=== PATIENT | male | born 1965 | race Caucasian/White ===

== ENCOUNTER 2020-10-25 07:11 | Outpatient (REF) | payer OTHER, SELFPAY ==
[2020-10-25 11:24] LABS: Hematocrit 38.6 % (42-52); Hemoglobin 12.9 g/dl (14.0-18.0)
[2020-10-25 11:45] LABS: Alanine Aminotransferase 36 U/L (0-40); Albumin Level 4.6 g/dL (3.5-5.0); Alkaline Phosphatase 42 U/L (39-117); Anion Gap 16 (12-20); Aspartate Amino Transferase 36 U/L (5-37); Bilirubin Total 0.3 mg/dL (0.0-1.0); Blood Urea Nitrogen 16 mg/dL (9-16); Calcium 9.7 mg/dL (8.4-10.2); Carbon Dioxide 26 mmol/L (22-29); Chloride 103 mmol/L (96-108); Cholesterol 181 mg/dL; Estimated Glomerular Filt Rate > 60; Glucose Fasting 79 mg/dL (60-99); HDL Cholesterol 38 mg/dL; LDL Cholesterol Calculated 101 mg/dl; Potassium 3.8 mmol/L (3.3-5.1); Sodium 141 mmol/L (135-145); Total Protein 7.5 g/dL (6.5-8.0); Triglycerides 214 mg/dL
== END 2020-10-25 07:12 | disposition home or self-care (01) ==
LOC: HO.HMGCLDS 07:11
PROVIDERS: PCP Internal Medicine; Visit Provider Internal Medicine
DX: D64.9 Anemia, unspecified (principal); E78.9 Disorder of lipoprotein metabolism, unspecified; I10 Essential (primary) hypertension; F41.1 Generalized anxiety disorder; F10.20 Alcohol dependence, uncomplicated
CPT/HCPCS: 36415; 80053; 80061; 85014; 85018

== ENCOUNTER 2021-06-18 06:03 | Outpatient (REF) | payer OTHER, SELFPAY ==
[2021-06-18 11:34] LABS: MANUAL DIFF FLAG NO
[2021-06-18 11:45] LABS: Basophils Absolute Auto 0.1 X10*3/uL (0.0-0.2); Basophils Percent Auto 0.7 % (0-2); Eosinophils Absolute Auto 0.3 X10*3/uL (0.0-0.4); Eosinophils Percent Auto 3.1 % (0-4); Hematocrit 38.4 % (42.0-52.0); Hemoglobin 12.8 g/dl (14.0-18.0); Imm Gran Abs Auto 0.05 X10*3/uL (0.00-0.03); Imm Gran Pct Auto 0.5 % (0.0-0.4); Lymphocytes Absolute Auto 2.9 X10*3/uL (1.2-4.9); Lymphocytes Percent Auto 30.6 % (20-40); Mean Corpuscular HGB Conc 33.3 g/dl (31.0-36.0); Mean Corpuscular Hemoglobin 31.8 pg (27.0-33.0); Mean Corpuscular Volume 95.3 fL (80.0-98.0); Mean Platelet Volume 10.4 fL (9.4-12.4); Monocytes Absolute Auto 0.9 X10*3/uL (0.1-1.2); Monocytes Percent Auto 9.2 % (2-11); Neutrophils Absolute Auto 5.3 x10*3/uL (2.0-8.3); Neutrophils Percent Auto 55.9 % (45-73); Platelet Count 287 X10*3/uL (160-400); Red Blood Count 4.03 X10*6/uL (4.60-5.80); Red Cell Distribution Width 12.8 % (11.0-16.0); White Blood Count 9.5 X10*3/uL (4.8-10.8)
[2021-06-18 12:01] LABS: Alanine Aminotransferase 22 U/L (0-40); Albumin Level 4.3 g/dL (3.5-5.0); Alkaline Phosphatase 40 U/L (39-117); Anion Gap 14 (12-20); Aspartate Amino Transferase 28 U/L (5-37); Bilirubin Total 0.3 mg/dL (0.0-1.0); Blood Urea Nitrogen 18 mg/dL (9-16); Calcium 9.9 mg/dL (8.4-10.2); Carbon Dioxide 27 mmol/L (22-29); Chloride 102 mmol/L (96-108); Estimated Glomerular Filt Rate > 60; Glucose Random 101 mg/dL (60-115); Sodium 139 mmol/L (135-145); Total Protein 7.3 g/dL (6.5-8.0)
== END 2021-06-18 06:04 | disposition home or self-care (01) ==
LOC: HO.HMGCLDS 06:03
PROVIDERS: Visit Provider Internal Medicine
DX: E78.9 Disorder of lipoprotein metabolism, unspecified (principal); F10.20 Alcohol dependence, uncomplicated; F41.1 Generalized anxiety disorder; I10 Essential (primary) hypertension; Z72.0 Tobacco use
CPT/HCPCS: 36415; 80053; 85025

== ENCOUNTER 2022-06-05 08:30 | Outpatient (REF) | payer OTHER, SELFPAY ==
[2022-06-05 11:17] LABS: MANUAL DIFF FLAG NO
[2022-06-05 11:36] LABS: Basophils Absolute Auto 0.1 X10*3/uL (0.0-0.2); Basophils Percent Auto 1.3 % (0-2); Eosinophils Absolute Auto 0.3 X10*3/uL (0.0-0.4); Eosinophils Percent Auto 3.2 % (0-4); Hematocrit 39.6 % (42.0-52.0); Hemoglobin 13.5 g/dl (14.0-18.0); Imm Gran Abs Auto 0.06 X10*3/uL (0.00-0.03); Imm Gran Pct Auto 0.7 % (0.0-0.4); Lymphocytes Absolute Auto 2.8 X10*3/uL (1.2-4.9); Lymphocytes Percent Auto 31.5 % (20-40); Mean Corpuscular HGB Conc 34.1 g/dl (31.0-36.0); Mean Corpuscular Hemoglobin 31.8 pg (27.0-33.0); Mean Corpuscular Volume 93.2 fL (80.0-98.0); Mean Platelet Volume 10.3 fL (9.4-12.4); Monocytes Absolute Auto 0.8 X10*3/uL (0.1-1.2); Monocytes Percent Auto 8.8 % (2-11); Neutrophils Absolute Auto 4.8 x10*3/uL (2.0-8.3); Neutrophils Percent Auto 54.5 % (45-73); Platelet Count 307 X10*3/uL (160-400); Red Blood Count 4.25 X10*6/uL (4.60-5.80); Red Cell Distribution Width 12.9 % (11.0-16.0); White Blood Count 8.7 X10*3/uL (4.8-10.8)
[2022-06-05 11:43] LABS: Alanine Aminotransferase 29 U/L (0-40); Albumin Level 4.6 g/dL (3.5-5.0); Alkaline Phosphatase 40 U/L (39-117); Anion Gap 16 (12-20); Aspartate Amino Transferase 32 U/L (5-37); Bilirubin Total 0.5 mg/dL (0.0-1.0); Blood Urea Nitrogen 24 mg/dL (9-16); Calcium 9.8 mg/dL (8.4-10.2); Carbon Dioxide 26 mmol/L (22-29); Chloride 99 mmol/L (96-108); Cholesterol 199 mg/dL; Estimated Glomerular Filt Rate > 60; Glucose Fasting 94 mg/dL (60-99); Glucose Random 93 mg/dL (60-115); HDL Cholesterol 38 mg/dL; LDL Cholesterol Calculated 129 mg/dl; Potassium 3.8 mmol/L (3.3-5.1); Sodium 137 mmol/L (135-145); Total Protein 7.5 g/dL (6.5-8.0); Triglycerides 161 mg/dL
[2022-06-06 07:39] LABS: LDL Cholesterol Direct 131 mg/dL (<100)
== END 2022-06-05 08:31 | disposition home or self-care (01) ==
LOC: HO.HMGCLDS 08:30
PROVIDERS: PCP Internal Medicine; Visit Provider Internal Medicine
DX: I10 Essential (primary) hypertension (principal); E78.9 Disorder of lipoprotein metabolism, unspecified; F41.1 Generalized anxiety disorder; F10.20 Alcohol dependence, uncomplicated; R06.2 Wheezing; Z72.0 Tobacco use
CPT/HCPCS: 36415; 80053; 80061; 83721; 85025

== ENCOUNTER 2022-12-25 14:23 | Outpatient (AMB) | payer OTHER, SELFPAY ==
--- NOTE | 2022-12-25 14:24 | A.OFFPC_ITS ---
Vital Signs 12/25/22 14:25 Height 5 ft 9 in Weight 179 lb 2 oz BMI 26.4 BP 144/78 H Blood Pressure Location Rt brachial Position Sitting Pulse 68 Pulse Source Pulse Oximeter Pulse Oximetry (%) 98 Oxygen Delivery Method Room Air Intake Visit Reasons: 3m follow up Allergies No Known Allergies [No Known Allergies*] Allergy (Verified 12/25/22 14:26) Medication List - Last Reconciled 12/25/22 by Marilou Bejarano MD amlodipine 10 mg PO DAILY fenofibrate nanocrystallized 145 mg PO DAILY losartan-hydrochlorothiazide 100-25 mg 1 tab PO DAILY 90 days lovastatin 40 mg PO DAILY 90 days metoprolol succinate ER 100 mg PO DAILY paroxetine HCl ER 25 mg PO DAILY Tobacco use date assessed: 12/25/22 Dental Screening Dental Screen Date: 12/25/22 Did you have a dental visit in the last 12 months?: Yes Did you have a dental problem in the last 6 months where you did not have access to dental care?: No Was dental information given to patient?: No HPI 3m follow up HPI Details Patient is a 57-year-old gentlemen came in today for his regular follow-up appointment Patient is stable taking all his medications offer no new complaints Labs arterial to be done today Hypertension: Patient is taking losartan hydrochlorothiazide 100-25 mg once a day, amlodipine 10 mg once a day and metoprolol ER 100 mg once a day. Tolerati ng medication no side effects Lipid disorder: Continue lovastatin 40 mg once a day patient is tolerating medication Anxiety disorder: Patient is taking Paxil ER 25 mg once a day Continued to drink and smoke we have talked about it several times patient is aware he need to stop Once again counseling provided and help offered, he says that he will reach out to us when he is ready Follow-up 4 months [facility] Medical History Alcoholism Anxiety, generalized Hypertension, essential Lipid disorder Social History Housing: House Patient Tobacco Use Status: Current everyday Tobacco user Cigarette Packs Per Day: 1 Years Smoked: 20 years e-Cigarette/Vaping Use: Never Used service: No Current occupational status: employed Cognitive needs: No Hearing needs: No Vision needs: No Questionnaire PHQ-9 Over the last 2 weeks, how often have you been bothered by any of the following problems? 1. Little interest or pleasure in doing things: not at all 2. Feeling down, depressed, or hopeless: not at all 3. Trouble falling or staying asleep, or sleeping too much: not at all 4. Feeling tired or having little energy: not at all 5. Poor appetite or overeating: not at all 6. Feeling bad about yourself - or that you are a failure or have let yourself or your family down: not at all 7. Trouble concentrating on things, such as reading the newspaper or watching television: not at all 8. Moving or speaking so slowly that other people could have noticed. Or the opposite - being so fidgety or restless that you have been moving around a lot more than usual: not at all 9. Thoughts that you would be better off or of hurting yourself in some way: not at all Total score: 0 Depression Screening Interpretation: Negative 08991 - PHQ-9 Billing: Yes Source: Developed by Drs. Myles Evans, Eileen Cespedes, Dayo Bowling and colleagues, with an educational anne-marie from [employer]. Thrive Questionnaire Date Thrive assessed: 12/25/22 I am a: Patient What is your living situation today?: I have a steady place to live Within the past 12 months, did the food you bought not last and you didn't have the money to get more?: Never true Within the past 12 months, did you worry whether your food would run out before you got money to buy more?: Never true Do you have trouble paying for medicines?: No Do you have trouble getting transportation to medical appointments?: No Do you have trouble paying your heating and electricity bill?: No Do you have trouble taking care of your child, family member or friend?: No Do you have trouble with day-to-day activities such as bathing, preparing meals, shopping, managing finances, etc.?: No Are you currently unemployed and looking for a job?: No Are you interested in more education?: No AUDIT C Alcohol Use Questionnaire (AUDIT-C) 1. How often do you have a drink containing alcohol?: 4 or more times a week 2. How many drinks containing alcohol do you have on a typical day when you are drinking?: 10 or more 3. How often do you have six or more drinks on one occasion?: Daily or almost daily Total Score: 12 Score Reviewed/Action Taken: Yes STEFANIE-7 AMB Questionnaire STEFANIE-7 Date STEFANIE - 7 assessed: 12/25/22 Feeling nervous, anxious, or on edge: 0 = Not at all Not being able to stop or control worryin = Not at all Worrying too much about different things: 0 = Not at all Trouble relaxin = Not at all Being so restless that it is hard to sit still: 0 = Not at all Becoming easily annoyed or irritable: 0 = Not at all Feeling afraid as if something awful might happen: 0 = Not at all Total STEFANIE-7 score (0-4 normal; 5-9 mild; 10-14 moderate; 15-21 severe): 0 Source: Developed by Drs. Myles Evans, Eileen Cespedes, Dayo Bowling and colleagues, with an educational anne-marie from [employer]. STEFANIE-7 Assessment Billing STEFANIE-7 Assessment Tool: STEFANIE-7 Assessment 60605 Review of Systems Const Denies chills and Denies fever(s) ENT Denies epistaxis and Denies nasal discharge Card Denies chest pain Resp Denies chest congestion, Denies cough and Denies hemoptysis GI Denies diarrhea and Denies nausea Skin/Breast Denies rash Neuro Reports no additional complaints Psych Reports no additional complaints Endo Reports no additional complaints Physical exam (Primary Care) Vital Signs: Last Vital Signs Pulse 68 12/25/22 14:25 BP 144/78 H 12/25/22 14:25 Pulse Ox 98 12/25/22 14:25 Oxygen Delivery Method Room Air 12/25/22 14:25 BMI result Body Mass Index 26.4 Tobacco/Smoking Status: Tobacco use Status Tobacco use date assessed 12/25/22 12/25/22 14:29 Patient Tobacco Use Status Current everyday Tobacco 12/25/22 14:29 e-Cigarette/Vaping Use Never Used 12/25/22 14:29 PHQ-9: PHQ-9 Score PHQ-9: Total score 0 12/25/22 14:38 Depression Screening Interpretation: Negative Thrive Assessment: Date of Thrive Assessment Date Thrive assessed 12/25/22 12/25/22 14:38 Const General: cooperative, comfortable and no acute distress Orientation/consciousness: patient oriented x3 HENMT Head: Yes normocephalic Eyes General: appearance normal, both eyes and all related structures Neck Neck: Yes supple Resp Effort & Inspection: normal respiratory effort, no cough and no stridor Cardio Rhythm: regular rhythm Heart sounds: S1 normal heart sound present and S2 normal heart sound present Skin General skin exam: turgor normal Neuro General: patient oriented x3, tone normal and moves all extremities Extrem Right lower extremity: no edema Left lower extremity: no edema Assessment and Plan Assessment & Plan (1) Hypertension, essential: Code(s): I10 - Essential (primary) hypertension (2) Lipid disorder: Code(s): E78.9 - Disorder of lipoprotein metabolism, unspecified (3) Anxiety, generalized: Code(s): F41.1 - Generalized anxiety disorder (4) Alcoholism: Code(s): F10.20 - Alcohol dependence, uncomplicated (5) Low hemoglobin: Code(s): D64.9 - Anemia, unspecified (6) Tobacco abuse: Code(s): Z72.0 - Tobacco use (7) Tobacco abuse counseling: Code(s): Z71.6 - Tobacco abuse counseling (8) Alcohol abuse counseling and surveillance: Code(s): Z71.41 - Alcohol abuse counseling and surveillance of alcoholic Plan Patient is a 57-year-old gentlemen came in today for his regular follow-up appointment Patient is stable taking all his medications offer no new complaints Labs arterial to be done today Hypertension: Patient is taking losartan hydrochlorothiazide 100-25 mg once a day, amlodipine 10 mg once a day and metoprolol ER 100 mg once a day. Tolerating medication no side effects Lipid disorder: Continue lovastatin 40 mg once a day patient is tolerating medication Anxiety disorder: Patient is taking Paxil ER 25 mg once a day Continued to drink and smoke we have talked about it several times patient is aware he need to stop Once again counseling provided and help offered, he says that he will reach out to us when he is ready Follow-up 4 months Orders: Orders Comprehensive Met. Panel Today D64.9 - Anemia, unspecified, E78.9 - Disorder of lipoprotein metabolism, unspecified, F10.20 - Alcohol dependence, uncomplicated, F41.1 - Generalized anxiety disorder, I10 - Essential (primary) hypertension, Z72.0 - Tobacco use Complete Blood Count Auto Diff Today D64.9 - Anemia, unspecified, E78.9 - Disorder of lipoprotein metabolism, unspecified, F10.20 - Alcohol dependence, uncomplicated, F41.1 - Generalized anxiety disorder, I10 - Essential (primary) hypertension, Z72.0 - Tobacco use Ethanol Today F10.20 - Alcohol dependence, uncomplicated Coding Level of Care Code Est Pt Level 4 (78984) Diagnoses Hypertension, essential I10 Lipid disorder E78.9 Anxiety, generalized F41.1 Alcoholism F10.20 Low hemoglobin D64.9 Tobacco abuse Z72.0 Tobacco abuse counseling Z71.6 Alcohol abuse counseling and surveillance Z71.41 Additional Codes STEFANIE-7 Assessment Billing - STEFANIE-7 Assessment Tool: STEFANIE-7 Assessment 92225 ([id number])
[2022-12-25 14:25] VITALS: BP 144/78; PULSE 68; O2SAT 98; BMI 26.4
== END 2022-12-25 14:53 | disposition home or self-care (01) ==
PROVIDERS: PCP Internal Medicine; Visit Provider Internal Medicine
DX: I10 Essential (primary) hypertension (principal); F10.20 Alcohol dependence, uncomplicated; E78.9 Disorder of lipoprotein metabolism, unspecified; F41.1 Generalized anxiety disorder; D64.9 Anemia, unspecified; Z72.0 Tobacco use; Z71.6 Tobacco abuse counseling; Z71.41 Alcohol abuse counseling and surveillance of alcoholic
CPT/HCPCS: 99214

== ENCOUNTER 2022-12-25 14:49 | Outpatient (REF) | payer OTHER, SELFPAY ==
[2022-12-25 15:58] LABS: MANUAL DIFF FLAG NO
[2022-12-25 16:01] LABS: Basophils Absolute Auto 0.1 X10*3/uL (0.0-0.2); Basophils Percent Auto 0.8 % (0-2); Eosinophils Absolute Auto 0.3 X10*3/uL (0.0-0.4); Eosinophils Percent Auto 3.3 % (0-4); Hematocrit 37.1 % (42.0-52.0); Hemoglobin 12.7 g/dl (14.0-18.0); Imm Gran Abs Auto 0.05 X10*3/uL (0.00-0.03); Imm Gran Pct Auto 0.5 % (0.0-0.4); Lymphocytes Absolute Auto 3.2 X10*3/uL (1.2-4.9); Lymphocytes Percent Auto 33.4 % (20-40); Mean Corpuscular HGB Conc 34.2 g/dl (31.0-36.0); Mean Corpuscular Hemoglobin 31.9 pg (27.0-33.0); Mean Corpuscular Volume 93.2 fL (80.0-98.0); Mean Platelet Volume 9.7 fL (9.4-12.4); Monocytes Absolute Auto 0.9 X10*3/uL (0.1-1.2); Monocytes Percent Auto 9.7 % (2-11); Neutrophils Percent Auto 52.3 % (45-73); Platelet Count 261 X10*3/uL (160-400); Red Blood Count 3.98 X10*6/uL (4.60-5.80); Red Cell Distribution Width 12.6 % (11.0-16.0); White Blood Count 9.5 X10*3/uL (4.8-10.8)
[2022-12-25 16:12] LABS: Alanine Aminotransferase 27 U/L (0-40); Albumin Level 4.4 g/dL (3.5-5.0); Alkaline Phosphatase 40 U/L (39-117); Anion Gap 13 (12-20); Aspartate Amino Transferase 30 U/L (5-37); Bilirubin Total 0.2 mg/dL (0.0-1.0); Blood Urea Nitrogen 19 mg/dL (9-16); Calcium 9.5 mg/dL (8.4-10.2); Carbon Dioxide 23 mmol/L (22-29); Chloride 102 mmol/L (96-108); Estimated Glomerular Filt Rate > 60; Ethanol 77 mg/dL; Glucose Random 114 mg/dL (60-115); Potassium 3.3 mmol/L (3.3-5.1); Sodium 135 mmol/L (135-145); Total Protein 7.4 g/dL (6.5-8.0)
== END 2022-12-25 14:50 | disposition home or self-care (01) ==
LOC: HO.HMGCLDS 14:49
PROVIDERS: PCP Internal Medicine; Visit Provider Internal Medicine
DX: D64.9 Anemia, unspecified (principal); E78.9 Disorder of lipoprotein metabolism, unspecified; F10.20 Alcohol dependence, uncomplicated; F41.1 Generalized anxiety disorder; I10 Essential (primary) hypertension; Z72.0 Tobacco use
CPT/HCPCS: 36415; 80053; 80307; 85025

== ENCOUNTER 2023-05-05 14:13 | Outpatient (AMB) | payer OTHER, SELFPAY ==
--- NOTE | 2023-05-05 14:14 | MHC.PC.OV ---
Vital Signs 05/05/23 14:15 Height 5 ft 9 in Weight 177 lb BMI 26.1 BP 142/88 H Blood Pressure Location Lt brachial Position Sitting Pulse 81 Pulse Source Pulse Oximeter Pulse Oximetry (%) 100 Oxygen Delivery Method Room Air Intake Visit Reasons: 4 month fu Allergies No Known Allergies [No Known Allergies*] Allergy (Verified 05/05/23 14:17) Medication List - Last Reconciled 05/05/23 by Marilou Bejarano MD amlodipine 10 mg PO DAILY fenofibrate nanocrystallized 145 mg PO DAILY losartan-hydrochlorothiazide 100-25 mg 1 tab PO DAILY 90 days lovastatin 40 mg PO DAILY 90 days metoprolol succinate ER 100 mg PO DAILY paroxetine HCl ER 25 mg PO DAILY Tobacco use date assessed: 05/05/23 Dental Screening Dental Screen Date: 05/05/23 Did you have a dental visit in the last 12 months?: Yes Did you have a dental problem in the last 6 months where you did not have access to dental care?: No Was dental information given to patient?: Patient has dentist HPI 4 month fu HPI Details Patient is a 57-year-old gentlemen came in today for his regular follow-up appointment Continued to smoke and continued to drink alcohol Hypertension: Patient is taking losartan hydrochlorothiazide 100-25 mg once a day, amlodipine 10 mg once a day and metoprolol ER 100 mg once a day. Tolerating medication no side effects Lipid disorder: Continue lovastatin 40 mg once a day patient is tolerating medication Anxiety disorder: Patient is taking Paxil ER 25 mg once a day Labs are needed before next visit 3 months [facility] Medical History Alcoholism Anxiety, generalized Lipid disorder Hypertension, essential Social History Housing: House Patient Tobacco Use Status: Current everyday Tobacco user Cigarette Packs Per Day: 1 Years Smoked: 20 years Packs Per Year: 0 e-Cigarette/Vaping Use: Never Used service: No Current occupational status: employed Cognitive needs: No Hearing needs: No Vision needs: No Questionnaire PHQ-9 Over the last 2 weeks, how often have you been bothered by any of the following problems? 1. Little interest or pleasure in doing things: not at all 2. Feeling down, depressed, or hopeless: not at all 3. Trouble falling or staying asleep, or sleeping too much: not at all 4. Feeling tired or having little energy: not at all 5. Poor appetite or overeating: not at all 6. Feeling bad about yourself - or that you are a failure or have let yourself or your family down: not at all 7. Trouble concentrating on things, such as reading the newspaper or watching television: not at all 8. Moving or speaking so slowly that other people could have noticed. Or the opposite - being so fidgety or restless that you have been moving around a lot more than usual: not at all 9. Thoughts that you would be better off or of hurting yourself in some way: not at all Total score: 0 Depression Screening Interpretation: Negative Depression Screening Done: Yes 22221 - PHQ-9 Billing: Yes Source: Developed by Drs. Myles Evans, Dayo De La Paz and colleagues, with an educational anne-marie from [employer]. Thrive Questionnaire Date Thrive assessed: 12/25/22 AUDIT C Alcohol Use Questionnaire (AUDIT-C) 1. How often do you have a drink containing alcohol?: 4 or more times a week 2. How many drinks containing alcohol do you have on a typical day when you are drinking?: 10 or more 3. How often do you have six or more drinks on one occasion?: Daily or almost daily Total Score: 12 Score Reviewed/Action Taken: Yes STEFANIE-7 AMB Questionnaire STEFANIE-7 Date STEFANIE - 7 assessed: 12/25/22 Source: Developed by Drs. Myles Evans, Eileen Cespedes, Dayo Bowling and colleagues, with an educational anne-marie from [employer]. Review of Systems Const Denies chills and Denies fever(s) ENT Denies epistaxis and Denies nasal discharge Card Denies chest pain Resp Denies chest congestion, Denies cough and Denies hemoptysis GI Denies diarrhea and Denies nausea Skin/Breast Denies rash Neuro Reports no additional complaints Psych Reports no additional complaints Endo Reports no additional complaints Physical exam (Primary Care) Vital Signs: Last Vital Signs Pulse 81 05/05/23 14:15 BP 142/88 H 05/05/23 14:15 Pulse Ox 100 05/05/23 14:15 Oxygen Delivery Method Room Air 05/05/23 14:15 BMI result Body Mass Index 26.1 Tobacco/Smoking Status: Tobacco use Status Tobacco use date assessed 05/05/23 05/05/23 14:19 Patient Tobacco Use Status Current everyday Tobacco 05/05/23 14:19 e-Cigarette/Vaping Use Never Used 05/05/23 14:19 Depression Screening Interpretation: Negative Thrive Assessment: Date of Thrive Assessment Date Thrive assessed 12/25/22 05/05/23 14:19 Const General: cooperative, comfortable and no acute distress Orientation/consciousness: patient oriented x3 HENMT Head: Yes normocephalic Eyes General: appearance normal, both eyes and all related structures Neck Neck: Yes supple Resp Effort & Inspection: normal respiratory effort, no cough and no stridor Cardio Rhythm: regular rhythm Heart sounds: S1 normal heart sound present and S2 normal heart sound present Skin General skin exam: turgor normal Neuro General: patient oriented x3, tone normal and moves all extremities Extrem Right lower extremity: no edema Left lower extremity: no edema Assessment and Plan Assessment & Plan (1) Hypertension, essential: Code(s): I10 - Essential (primary) hypertension (2) Lipid disorder: Code(s): E78.9 - Disorder of lipoprotein metabolism, unspecified (3) Anxiety, generalized: Code(s): F41.1 - Generalized anxiety disorder (4) Alcoholism: Code(s): F10.20 - Alcohol dependence, uncomplicated (5) Tobacco abuse: Code(s): Z72.0 - Tobacco use (6) Low hemoglobin: Code(s): D64.9 - Anemia, unspecified Plan Patient is a 57-year-old gentlemen came in today for his regular follow-up appointment Continued to smoke and continued to drink alcohol Hypertension: Patient is taking losartan hydrochlorothiazide 100-25 mg once a day, amlodipine 10 mg once a day and metoprolol ER 100 mg once a day. Tolerating medication no side effects Lipid disorder: Continue lovastatin 40 mg once a day patient is tolerating medication Anxiety disorder: Patient is taking Paxil ER 25 mg once a day Labs are needed before next visit 3 months Orders: Orders Comprehensive [place]. Panel Fast 2 Months E78.9 - Disorder of lipoprotein metabolism, unspecified, F10.20 - Alcohol dependence, uncomplicated, F41.1 - Generalized anxiety disorder, I10 - Essential (primary) hypertension, Z72.0 - Tobacco use Lipid Panel 2 Months E78.9 - Disorder of lipoprotein metabolism, unspecified, F10.20 - Alcohol dependence, uncomplicated, F41.1 - Generalized anxiety disorder, I10 - Essential (primary) hypertension, Z72.0 - Tobacco use Complete Blood Count Auto Diff 2 Months E78.9 - Disorder of lipoprotein metabolism, unspecified, F10.20 - Alcohol dependence, uncomplicated, F41.1 - Generalized anxiety disorder, I10 - Essential (primary) hypertension, Z72.0 - Tobacco use Coding Level of Care Code Est Pt Level 4 (94796) Diagnoses Hypertension, essential I10 Lipid disorder E78.9 Anxiety, generalized F41.1 Alcoholism F10.20 Tobacco abuse Z72.0 Low hemoglobin D64.9
[2023-05-05 14:15] VITALS: BP 142/88; PULSE 81; O2SAT 100; BMI 26.1
== END 2023-05-05 14:40 | disposition home or self-care (01) ==
PROVIDERS: PCP Internal Medicine; Visit Provider Internal Medicine
DX: I10 Essential (primary) hypertension (principal); E78.9 Disorder of lipoprotein metabolism, unspecified; F41.1 Generalized anxiety disorder; F10.20 Alcohol dependence, uncomplicated; Z72.0 Tobacco use; D64.9 Anemia, unspecified
CPT/HCPCS: 99214

== ENCOUNTER 2023-09-03 14:03 | Outpatient (AMB) | payer OTHER, SELFPAY ==
[2023-09-03 14:08] VITALS: BP 150/84; PULSE 67; O2SAT 99; BMI 25.7
--- NOTE | 2023-09-03 14:08 | MHC.PC.OV ---
Vital Signs 09/03/23 14:08 Height 5 ft 9 in Weight 174 lb 2 oz BMI 25.7 BP 150/84 H Blood Pressure Location Rt brachial Position Sitting Pulse 67 Pulse Source Pulse Oximeter Pulse Oximetry (%) 99 Oxygen Delivery Method Room Air Intake Visit Reasons: PE Allergies No Known Allergies [No Known Allergies*] Allergy (Verified 09/03/23 14:10) Medication List - Last Reconciled 09/03/23 by Marilou Bejarano MD amlodipine 10 mg PO DAILY fenofibrate nanocrystallized 145 mg PO DAILY losartan-hydrochlorothiazide 100-25 mg 1 tab PO DAILY 90 days lovastatin 40 mg PO DAILY 90 days metoprolol succinate ER 100 mg PO DAILY paroxetine HCl ER 25 mg PO DAILY Tobacco use date assessed: 09/03/23 Dental Screening Dental Screen Date: 09/03/23 Did you have a dental visit in the last 12 months?: Yes Did you have a dental problem in the last 6 months where you did not have access to dental care?: No Was dental information given to patient?: Patient has dentist HPI PE HPI Details Patient is a 58-year-old gentleman with a history of alcohol abuse, tobacco abuse, hypertension, lipid disorder, anxiety. Came in today for physical exam Patient is due for labs, order placed He was supposed to have labs done before this visit fasting but he forgot Labs changed to nonfasting so we can have that done today Due for colonoscopy, patient had colonoscopy [address] Skinner, reviewing pathology report I see that 1 tubular adenoma was found I have created a new referral to see Dr. Skinner for colonoscopy again Low-dose CT scan ordered patient have history of smoking 1 pack per day more than 15 years Patient have a history of anal warts, has been evaluated by Dermatology before but patient says that nothing much was done He is requesting a 2nd opinion Continued to drink alcohol and continued to smoke, no desire to stop Follow-up 3 months [facility] Medical History Alcoholism Anxiety, generalized Lipid disorder Hypertension, essential Social History Housing: House Patient Tobacco Use Status: Current everyday Tobacco user Cigarette Packs Per Day: 1 Years Smoked: 20 years e-Cigarette/Vaping Use: Never Used service: No Current occupational status: employed Cognitive needs: No Hearing needs: No Vision needs: No Questionnaire PHQ-9 Over the last 2 weeks, how often have you been bothered by any of the following problems? 1. Little interest or pleasure in doing things: not at all 2. Feeling down, depressed, or hopeless: not at all 3. Trouble falling or staying asleep, or sleeping too much: not at all 4. Feeling tired or having little energy: not at all 5. Poor appetite or overeating: not at all 6. Feeling bad about yourself - or that you are a failure or have let yourself or your family down: not at all 7. Trouble concentrating on things, such as reading the newspaper or watching television: not at all 8. Moving or speaking so slowly that other people could have noticed. Or the opposite - being so fidgety or restless that you have been moving around a lot more than usual: not at all 9. Thoughts that you would be better off or of hurting yourself in some way: not at all Total score: 0 Depression Screening Interpretation: Negative Depression Screening Done: Yes 86590 - PHQ-9 Billing: Yes Source: Developed by Drs. Myles Evans, Dayo De La Paz and colleagues, with an educational anne-marie from [employer]. Thrive Questionnaire Date Thrive assessed: 12/25/22 AUDIT C Alcohol Use Questionnaire (AUDIT-C) 1. How often do you have a drink containing alcohol?: 4 or more times a week 2. How many drinks containing alcohol do you have on a typical day when you are drinking?: 10 or more 3. How often do you have six or more drinks on one occasion?: Daily or almost daily Total Score: 12 Score Reviewed/Action Taken: Yes (Toxic effect of alcohol reviewed again) STEFANIE-7 AMB Questionnaire STEFANIE-7 Date STEFANIE - 7 assessed: 12/25/22 Source: Developed by Drs. Myles Evans, Dayo De La Paz and colleagues, with an educational anne-marie from [employer]. Review of Systems Const Denies chills, Denies fever(s) and Denies headache(s) Eyes Denies blurry vision ENT Denies headache(s), Denies nasal discharge, Denies nasal obstruction, Denies odynophagia and Denies sinus pain Card Denies chest pain at rest and Denies chest pain with activity Resp Denies cough and Denies hemoptysis GI Denies diarrhea, Denies odynophagia, Denies vomiting and Denies hematemesis Reports as per HPI Musc Denies abnormal gait Skin/Breast Reports as per HPI Neuro Denies Neuro-related abnormal movements, Denies Abnormal speech present, Denies abnormal gait, Denies headache(s) and Denies Sensory deficit (Neuro) Psych Denies mood swings and Denies paranoia Endo Reports as per HPI Tima/Lymph Reports as per HPI Aller/Immun Reports as per HPI Physical exam (Primary Care) Vital Signs: Last Vital Signs Pulse 67 09/03/23 14:08 BP 150/84 H 09/03/23 14:08 Pulse Ox 99 09/03/23 14:08 Oxygen Delivery Method Room Air 09/03/23 14:08 BMI result Body Mass Index 25.7 Tobacco/Smoking Status: Tobacco use Status Tobacco use date assessed 09/03/23 09/03/23 14:12 Patient Tobacco Use Status Current everyday Tobacco 09/03/23 14:12 e-Cigarette/Vaping Use Never Used 09/03/23 14:12 Are you ready to quit: No Tobacco cessation counseling provided: Yes Relapse Prevention: discussed the importance of a supportive environment CPT code: 47611 - 4-10 Minutes Depression Screening Interpretation: Negative Thrive Assessment: Date of Thrive Assessment Date Thrive assessed 12/25/22 09/03/23 14:12 Const General: cooperative, comfortable and no acute distress Orientation/consciousness: patient oriented x3 HENMT Head: Yes normocephalic and Yes atraumatic Eyes General: appearance normal, both eyes and all related structures Pupils: Equal, round and reactive pupils present EOM: EOMs intact bilaterally Neck Neck: Yes supple and No lymphadenopathy Thyroid: Thyroid normal Lymphatic: no lymphadenopathy noted Resp Effort & Inspection: normal respiratory effort and able to speak in complete sentences Auscultation: clear to auscultation bilaterally Cardio Heart sounds: S1 normal heart sound present and S2 normal heart sound present GI Palpation (GI): Soft to palpation and nontender Auscultation: normal bowel sounds General: Yes no CVA tenderness Back/Spine/Pelvis Back: no CVA tenderness Skin General skin exam: elasticity normal and turgor normal Neuro General: patient oriented x3 and gait normal Cranial nerves: Yes Equal, round and reactive pupils present Speech: No Abnormal speech present Sensory Exam: No Sensory deficit (Neuro) Coordination: tandem gait normal and Romberg test negative Extrem General: Yes normal exam except as noted and No edema Assessment and Plan Assessment & Plan (1) Encounter for general adult medical examination with abnormal findings: Code(s): Z00.01 - Encounter for general adult medical examination with abnormal findings (2) Hypertension, essential: Code(s): I10 - Essential (primary) hypertension (3) Lipid disorder: Code(s): E78.9 - Disorder of lipoprotein metabolism, unspecified (4) Anxiety, generalized: Code(s): F41.1 - Generalized anxiety disorder (5) Alcoholism: Code(s): F10.20 - Alcohol dependence, uncomplicated (6) Low hemoglobin: Code(s): D64.9 - Anemia, unspecified (7) Tobacco abuse: Code(s): Z72.0 - Tobacco use (8) Anal warts: Code(s): A63.0 - Anogenital (venereal) warts (9) Tubular adenoma: Code(s): D36.9 - Benign neoplasm, unspecified site Plan Patient is a 58-year-old gentleman with a history of alcohol abuse, tobacco abuse, hypertension, lipid disorder, anxiety. Came in today for physical exam Patient is due for labs, order placed He was supposed to have labs done before this visit fasting but he forgot Labs changed to nonfasting so we can have that done today Due for colonoscopy, patient had colonoscopy [address] Skinner, reviewing pathology report I see that 1 tubular adenoma was found I have created a new referral to see Dr. Skinner for colonoscopy again Low-dose CT scan ordered patient have history of smoking 1 pack per day more than 15 years Patient have a history of anal warts, has been evaluated by Dermatology before but patient says that nothing much was done He is requesting a 2nd opinion Continued to drink alcohol and continued to smoke, no desire to stop Follow-up 3 months Orders: Orders Comprehensive Met. Panel Today D64.9 - Anemia, unspecified, E78.9 - Disorder of lipoprotein metabolism, unspecified, F10.20 - Alcohol dependence, uncomplicated, F41.1 - Generalized anxiety disorder, I10 - Essential (primary) hypertension, Z00.01 - Encounter for general adult medical examination with abnormal findings, Z72.0 - Tobacco use Vitamin B12 Today D64.9 - Anemia, unspecified, E78.9 - Disorder of lipoprotein metabolism, unspecified, F10.20 - Alcohol dependence, uncomplicated, F41.1 - Generalized anxiety disorder, I10 - Essential (primary) hypertension, Z00.01 - Encounter for general adult medical examination with abnormal findings, Z72.0 - Tobacco use Complete Blood Count Auto Diff Today D64.9 - Anemia, unspecified, E78.9 - Disorder of lipoprotein metabolism, unspecified, F10.20 - Alcohol dependence, uncomplicated, F41.1 - Generalized anxiety disorder, I10 - Essential (primary) hypertension, Z00.01 - Encounter for general adult medical examination with abnormal findings, Z72.0 - Tobacco use LDL Cholesterol Direct Today D64.9 - Anemia, unspecified, E78.9 - Disorder of lipoprotein metabolism, unspecified, F10.20 - Alcohol dependence, uncomplicated, F41.1 - Generalized anxiety disorder, I10 - Essential (primary) hypertension, Z00.01 - Encounter for general adult medical examination with abnormal findings, Z72.0 - Tobacco use CT lung screening Today Z72.0 - Tobacco use Referrals Gastroenterology Referral D36.9 - Benign neoplasm, unspecified site Dermatology Referral A63.0 - Anogenital (venereal) warts Coding Level of Care Code Est Pt Prev Care 40-64y(09803) Diagnoses Encounter for general adult medical examination with abnormal findings Z00.01 Hypertension, essential I10 Lipid disorder E78.9 Anxiety, generalized F41.1 Alcoholism F10.20 Low hemoglobin D64.9 Tobacco abuse Z72.0 Anal warts A63.0 Tubular adenoma D36.9 Additional Codes Vital Signs *Quality* - CPT code: 99590 - 4-10 Minutes ([id number])
== END 2023-09-03 14:26 | disposition home or self-care (01) ==
PROVIDERS: PCP Internal Medicine; Visit Provider Internal Medicine
DX: Z00.00 Encounter for general adult medical examination without abnormal findings (principal); I10 Essential (primary) hypertension; E78.9 Disorder of lipoprotein metabolism, unspecified; F10.20 Alcohol dependence, uncomplicated; F41.1 Generalized anxiety disorder; D64.9 Anemia, unspecified; Z72.0 Tobacco use; A63.0 Anogenital (venereal) warts; D36.9 Benign neoplasm, unspecified site
CPT/HCPCS: 99396

== ENCOUNTER 2023-09-03 14:27 | Outpatient (REF) | payer OTHER, SELFPAY ==
[2023-09-03 16:13] LABS: MANUAL DIFF FLAG NO
[2023-09-03 16:19] LABS: Basophils Absolute Auto 0.1 X10*3/uL (0.0-0.2); Basophils Percent Auto 1.1 % (0-2); Eosinophils Absolute Auto 0.3 X10*3/uL (0.0-0.4); Hematocrit 38.2 % (42.0-52.0); Hemoglobin 12.7 g/dl (14.0-18.0); Imm Gran Abs Auto 0.03 X10*3/uL (0.00-0.03); Imm Gran Pct Auto 0.3 % (0.0-0.4); Lymphocytes Absolute Auto 2.9 X10*3/uL (1.2-4.9); Lymphocytes Percent Auto 32.1 % (20-40); Mean Corpuscular HGB Conc 33.2 g/dl (31.0-36.0); Mean Corpuscular Hemoglobin 30.8 pg (27.0-33.0); Mean Corpuscular Volume 92.5 fL (80.0-98.0); Mean Platelet Volume 9.8 fL (9.4-12.4); Monocytes Absolute Auto 0.8 X10*3/uL (0.1-1.2); Monocytes Percent Auto 9.4 % (2-11); Neutrophils Absolute Auto 4.9 x10*3/uL (2.0-8.3); Neutrophils Percent Auto 54.1 % (45-73); Platelet Count 283 X10*3/uL (160-400); Red Blood Count 4.13 X10*6/uL (4.60-5.80); Red Cell Distribution Width 14.1 % (11.0-16.0)
[2023-09-03 19:00] LABS: Alanine Aminotransferase 23 U/L (0-40); Albumin Level 4.5 g/dL (3.5-5.0); Alkaline Phosphatase 40 U/L (39-117); Anion Gap 15 (12-20); Aspartate Amino Transferase 28 U/L (5-37); Bilirubin Total 0.4 mg/dL (0.0-1.0); Blood Urea Nitrogen 14 mg/dL (9-16); Carbon Dioxide 24 mmol/L (22-29); Chloride 99 mmol/L (96-108); Estimated Glomerular Filt Rate > 60; Glucose Random 107 mg/dL (60-115); Potassium 3.3 mmol/L (3.3-5.1); Sodium 135 mmol/L (135-145); Total Protein 7.6 g/dL (6.5-8.0)
[2023-09-03 19:14] LABS: Vitamin B12 511 pg/mL (200-900)
[2023-09-04 10:49] LABS: LDL Cholesterol Direct 132 mg/dL (<100)
== END 2023-09-03 14:28 | disposition home or self-care (01) ==
LOC: HO.HMGCLDS 14:27
PROVIDERS: PCP Internal Medicine; Visit Provider Internal Medicine
DX: Z00.01 Encounter for general adult medical examination with abnormal findings (principal); I10 Essential (primary) hypertension; E78.9 Disorder of lipoprotein metabolism, unspecified; F41.1 Generalized anxiety disorder; F10.20 Alcohol dependence, uncomplicated; D64.9 Anemia, unspecified; Z72.0 Tobacco use
CPT/HCPCS: 36415; 80053; 82607; 83721; 85025

== ENCOUNTER 2024-02-11 12:30 | Outpatient (AMB) | payer OTHER, SELFPAY ==
[2024-02-11 12:35] VITALS: BP 132/78; PULSE 105; O2SAT 98; BMI 26.0
--- NOTE | 2024-02-11 12:35 | MHC.PC.OV ---
Vital Signs 02/11/24 12:35 Height 5 ft 9 in Weight 176 lb BMI 26.0 BP 132/78 Blood Pressure Location Rt brachial Position Sitting Pulse 105 H Pulse Source Pulse Oximeter Pulse Oximetry (%) 98 Oxygen Delivery Method Room Air Intake Visit Reasons: 3 months f/up Allergies No Known Allergies [No Known Allergies*] Allergy (Verified 02/11/24 12:37) Medication List - Last Reconciled 02/11/24 by Marilou Bejarano MD amlodipine 10 mg PO DAILY fenofibrate nanocrystallized 145 mg PO DAILY losartan-hydrochlorothiazide 100-25 mg 1 tab PO DAILY 90 days lovastatin 40 mg PO DAILY 90 days metoprolol succinate ER 100 mg PO DAILY paroxetine HCl ER 25 mg PO DAILY Tobacco use date assessed: 02/11/24 Dental Screening Dental Screen Date: 02/11/24 Did you have a dental visit in the last 12 months?: Yes Did you have a dental problem in the last 6 months where you did not have access to dental care?: No Was dental information given to patient?: Patient has dentist HPI 3 months f/up HPI Details Patient is a 58-year-old gentleman with a history of alcohol abuse, tobacco abuse, hypertension, lipid disorder, anxiety. Came in today for follow-up appointment, last visit was August of this year patient missed his regular follow-up after that until today Patient is due for labs, order placed Blood pressure is stable today patient is taking Amlodipine 10 mg Losartan hydrochlorothiazide 100-25 mg once a day And metoprolol 100 mg Lipid disorder: Continue lovastatin 40 mg and fenofibrate 145 for elevated triglycerides Anxiety stable with paroxetine 25 mg Patient continued to smoke and drink He said that he tried few times but failed On exam today he is wheezing however he does not want to take any inhaler I also noticed that he has irritated cough which could be because of COPD Follow-up 3 months [facility] Medical History Alcoholism Anxiety, generalized Lipid disorder Hypertension, essential Social History Housing: House Patient Tobacco Use Status: Current everyday Tobacco user Cigarette Packs Per Day: 1 Years Smoked: 20 years e-Cigarette/Vaping Use: Never Used service: No Current occupational status: employed Cognitive needs: No Hearing needs: No Vision needs: No Questionnaire PHQ-9 Over the last 2 weeks, how often have you been bothered by any of the following problems? 1. Little interest or pleasure in doing things: not at all 2. Feeling down, depressed, or hopeless: not at all 3. Trouble falling or staying asleep, or sleeping too much: not at all 4. Feeling tired or having little energy: not at all 5. Poor appetite or overeating: not at all 6. Feeling bad about yourself - or that you are a failure or have let yourself or your family down: not at all 7. Trouble concentrating on things, such as reading the newspaper or watching television: not at all 8. Moving or speaking so slowly that other people could have noticed. Or the opposite - being so fidgety or restless that you have been moving around a lot more than usual: not at all 9. Thoughts that you would be better off or of hurting yourself in some way: not at all Total score: 0 Depression Screening Interpretation: Negative Depression Screening Done: Yes 57819 - PHQ-9 Billing: Yes Source: Developed by Drs. Myles Evans, Eileen Cespedes, Dayo Bowling and colleagues, with an educational anne-marie from [employer]. Thrive Questionnaire Date Thrive assessed: 12/25/22 I am a: Patient What is your living situation today?: I have a steady place to live Within the past 12 months, did the food you bought not last and you didn't have the money to get more?: Never true Within the past 12 months, did you worry whether your food would run out before you got money to buy more?: Never true Do you have trouble paying for medicines?: No Do you have trouble getting transportation to medical appointments?: No Do you have trouble paying your heating and electricity bill?: No Do you have trouble taking care of your child, family member or friend?: No Do you have trouble with day-to-day activities such as bathing, preparing meals, shopping, managing finances, etc.?: No Are you interested in more education?: No Please select the resources that you would like help with: None Currently or been in a relationship where the following occur: No concerns reported THRIVE Score: 0 AUDIT C Alcohol Use Questionnaire (AUDIT-C) 1. How often do you have a drink containing alcohol?: 4 or more times a week 2. How many drinks containing alcohol do you have on a typical day when you are drinking?: 10 or more 3. How often do you have six or more drinks on one occasion?: Daily or almost daily Total Score: 12 STEFANIE-7 AMB Questionnaire STEFANIE-7 Date STEFANIE - 7 assessed: 12/25/22 Feeling nervous, anxious, or on edge: 1 = Several days Not being able to stop or control worryin = Not at all Worrying too much about different things: 0 = Not at all Trouble relaxin = Not at all Being so restless that it is hard to sit still: 0 = Not at all Becoming easily annoyed or irritable: 0 = Not at all Feeling afraid as if something awful might happen: 0 = Not at all Total STEFANIE-7 score (0-4 normal; 5-9 mild; 10-14 moderate; 15-21 severe): 1 Source: Developed by Drs. Myles Evans, Eileen Cespedes, Dayo Bowling and colleagues, with an educational anne-marie from [employer]. Review of Systems Const Denies chills and Denies fever(s) ENT Denies epistaxis and Denies nasal discharge Card Denies chest pain Resp Denies chest congestion and Denies hemoptysis GI Denies diarrhea and Denies nausea Skin/Breast Denies rash Neuro Reports no additional complaints Psych Reports no additional complaints Endo Reports no additional complaints Physical exam (Primary Care) Vital Signs: Last Vital Signs Pulse 105 H 02/11/24 12:35 BP 132/78 02/11/24 12:35 Pulse Ox 98 02/11/24 12:35 Oxygen Delivery Method Room Air 02/11/24 12:35 BMI result Body Mass Index 26.0 Tobacco/Smoking Status: Tobacco use Status Tobacco use date assessed 02/11/24 02/11/24 12:39 Patient Tobacco Use Status Current everyday Tobacco 02/11/24 12:39 e-Cigarette/Vaping Use Never Used 02/11/24 12:39 PHQ-9: PHQ-9 Score PHQ-9: Total score 0 02/11/24 12:39 Depression Screening Interpretation: Negative Thrive Assessment: Date of Thrive Assessment Date Thrive assessed 12/25/22 02/11/24 12:39 Currently or been in a relationship where the following occur: No concerns reported Const General: cooperative, comfortable and no acute distress Orientation/consciousness: patient oriented x3 HENMT Head: Yes normocephalic Eyes General: appearance normal, both eyes and all related structures Neck Neck: Yes supple Resp Other: Wheezing bilateral with deep breath Effort & Inspection: normal respiratory effort and no stridor Cardio Rhythm: regular rhythm Heart sounds: S1 normal heart sound present and S2 normal heart sound present Skin General skin exam: turgor normal Neuro General: patient oriented x3, tone normal and moves all extremities Extrem Right lower extremity: no edema Left lower extremity: no edema Coding Level of Care Code Est Pt Level 4 (67680) Diagnoses Hypertension, essential I10 Lipid disorder E78.9 Anxiety, generalized F41.1 Alcoholism F10.20 Low hemoglobin D64.9 Assessment & Plan Assessment & Plan (1) Hypertension, essential: Code(s): I10 - Essential (primary) hypertension Category: Medical (2) Lipid disorder: Code(s): E78.9 - Disorder of lipoprotein metabolism, unspecified Category: Medical (3) Anxiety, generalized: Code(s): F41.1 - Generalized anxiety disorder Category: Medical (4) Alcoholism: Code(s): F10.20 - Alcohol dependence, uncomplicated Category: Medical (5) Low hemoglobin: Code(s): D64.9 - Anemia, unspecified Category: Medical Plan Patient is a 58-year-old gentleman with a history of alcohol abuse, tobacco abuse, hypertension, lipid disorder, anxiety. Came in today for follow-up appointment, last visit was August of this year patient missed his regular follow-up after that until today Patient is due for labs, order placed Blood pressure is stable today patient is taking Amlodipine 10 mg Losartan hydrochlorothiazide 100-25 mg once a day And metoprolol 100 mg Lipid disorder: Continue lovastatin 40 mg and fenofibrate 145 for elevated triglycerides Anxiety stable with paroxetine 25 mg Patient continued to smoke and drink He said that he tried few times but failed On exam today he is wheezing however he does not want to take any inhaler I also noticed that he has irritated cough which could be because of COPD Follow-up 3 months Orders: Orders Complete Blood Count Auto Diff Today D64.9 - Anemia, unspecified, E78.9 - Disorder of lipoprotein metabolism, unspecified, F10.20 - Alcohol dependence, uncomplicated, F41.1 - Generalized anxiety disorder, I10 - Essential (primary) hypertension LDL Cholesterol Direct Today D64.9 - Anemia, unspecified, E78.9 - Disorder of lipoprotein metabolism, unspecified, F10.20 - Alcohol dependence, uncomplicated, F41.1 - Generalized anxiety disorder, I10 - Essential (primary) hypertension Comprehensive Met. Panel Today D64.9 - Anemia, unspecified, E78.9 - Disorder of lipoprotein metabolism, unspecified, F10.20 - Alcohol dependence, uncomplicated, F41.1 - Generalized anxiety disorder, I10 - Essential (primary) hypertension Medications: Refilled amlodipine 10 mg PO DAILY 90 tabs 0RF paroxetine HCl ER 25 mg PO DAILY 90 tabs 0RF fenofibrate nanocrystallized 145 mg PO DAILY 90 tabs 0RF losartan-hydrochlorothiazide 100-25 mg 1 tab PO DAILY 90 days 90 tabs 1RF I10 - Essential (primary) hypertension lovastatin 40 mg PO DAILY 90 days 90 tabs 1RF E78.9 - Disorder of lipoprotein metabolism, unspecified metoprolol succinate ER 100 mg PO DAILY 90 tabs 0RF
== END 2024-02-11 13:41 | disposition home or self-care (01) ==
PROVIDERS: PCP Internal Medicine; Visit Provider Internal Medicine
DX: I10 Essential (primary) hypertension (principal); E78.9 Disorder of lipoprotein metabolism, unspecified; F41.1 Generalized anxiety disorder; F10.20 Alcohol dependence, uncomplicated; D64.9 Anemia, unspecified

== ENCOUNTER → 2024-02-11 12:30 | Outpatient (BNVA) | payer OTHER, SELFPAY | PROVIDERS: PCP Internal Medicine; Visit Provider Internal Medicine ==

== ENCOUNTER 2024-02-11 12:59 | Outpatient (REF) | payer OTHER, SELFPAY ==
[2024-02-11 16:18] LABS: MANUAL DIFF FLAG NO
[2024-02-11 16:29] LABS: Basophils Absolute Auto 0.1 X10*3/uL (0.0-0.2); Basophils Percent Auto 1.1 % (0-2); Eosinophils Absolute Auto 0.1 X10*3/uL (0.0-0.4); Hematocrit 37.4 % (42.0-52.0); Hemoglobin 12.9 g/dl (14.0-18.0); Imm Gran Abs Auto 0.04 X10*3/uL (0.00-0.03); Imm Gran Pct Auto 0.6 % (0.0-0.4); Lymphocytes Absolute Auto 2.4 X10*3/uL (1.2-4.9); Lymphocytes Percent Auto 34.2 % (20-40); Mean Corpuscular HGB Conc 34.5 g/dl (31.0-36.0); Mean Corpuscular Hemoglobin 32.7 pg (27.0-33.0); Mean Corpuscular Volume 94.7 fL (80.0-98.0); Mean Platelet Volume 10.1 fL (9.4-12.4); Monocytes Absolute Auto 0.7 X10*3/uL (0.1-1.2); Monocytes Percent Auto 10.5 % (2-11); Neutrophils Absolute Auto 3.6 x10*3/uL (2.0-8.3); Neutrophils Percent Auto 51.6 % (45-73); Platelet Count 271 X10*3/uL (160-400); Red Blood Count 3.95 X10*6/uL (4.60-5.80); Red Cell Distribution Width 13.2 % (11.0-16.0)
[2024-02-11 16:51] LABS: Alanine Aminotransferase 31 U/L (0-40); Albumin Level 4.7 g/dL (3.5-5.0); Alkaline Phosphatase 44 U/L (39-117); Anion Gap 16 (12-20); Aspartate Amino Transferase 33 U/L (5-37); Bilirubin Total 0.4 mg/dL (0.0-1.0); Blood Urea Nitrogen 15 mg/dL (9-16); Calcium 10.5 mg/dL (8.4-10.2); Carbon Dioxide 23 mmol/L (22-29); Chloride 103 mmol/L (96-108); Estimated Glomerular Filt Rate > 60; Glucose Random 94 mg/dL (60-115); Potassium 3.5 mmol/L (3.3-5.1); Sodium 138 mmol/L (135-145); Total Protein 7.8 g/dL (6.5-8.0)
[2024-02-14 07:43] LABS: LDL Cholesterol Direct 130 mg/dL (<100)
== END 2024-02-11 13:00 | disposition home or self-care (01) ==
LOC: HO.HMGCLDS 12:59
PROVIDERS: PCP Internal Medicine; Visit Provider Internal Medicine
DX: I10 Essential (primary) hypertension (principal); E78.89 Other lipoprotein metabolism disorders; F41.1 Generalized anxiety disorder; D64.9 Anemia, unspecified
CPT/HCPCS: 36415; 80053; 83721; 85025

== ENCOUNTER 2024-02-29 07:32 | Day surgery (SDC) | payer OTHER, SELFPAY ==
[2024-02-25 14:38] VITALS: BMI 25.5
--- NOTE | 2024-02-28 10:19 | HO.ANESPROP2 ---
Documented by User: Callie Gardner NP 02/28/24 10:20 HPI - Anesthesia Eval Consult details Narrative: 58yo M for Colonoscopy ETOH abuse Smoker PMFSH Active Problems Active Problems: All Active Problems Tubular adenoma (Acute) Encounter for general adult medical examination with abnormal findings (Acute) Alcohol abuse counseling and surveillance (Acute) Tobacco abuse counseling (Acute) Wheezing on left side of chest on inhalation (Acute) Disorder of skin of scrotum (Acute) Tobacco abuse (Acute) Anal warts (Acute) Low hemoglobin (Acute) Alcoholism (Acute) Anxiety, generalized (Acute) Lipid disorder (Acute) Hypertension, essential (Acute) Past Medical History Medical History Tobacco use disorder Alcoholism Anxiety, generalized Lipid disorder Hypertension, essential Surgical History Surgical History Hx of appendectomy H/O colonoscopy Social History Social History Housing: House Patient Tobacco Use Status: Current everyday Tobacco user Tobacco use type: Cigarette Cigarette Packs Per Day: 1 Cigarettes Per Day: 20 Years Smoked: 25 e-Cigarette/Vaping Use: Never Used Use of substances other than those prescribed or required for medical reasons: Yes Substance Use Type Other:: Smoke Substance Use Frequency: Daily Have you been hit, kicked, punched, or otherwise hurt by someone within the past year? If so, by whom?: No Advance Directives: No Advance Directives Information Provided: Yes Recently lost weight without trying: No Nutrition Risks: No Nutritional Risk Poor oral hygiene: No service: No Current occupational status: employed Cognitive needs: No Hearing needs: No Vision needs: No Meds Allergies Allergy/AdvReac Type Severity Reaction Status Date / Time No Known Allergies Allergy Verified 02/11/24 12:37 [No Known Allergies*] Exam Height,Weight and Vital Signs: Height 5 ft 9 in Weight 78.471 kg Pertinent Lab Results Pertinent Lab Results: Laboratory Tests 02/11/24 13:05 WBC 7.0 Hgb 12.9 L Hct 37.4 L Plt Count 271 Sodium 138 Potassium 3.5 Chloride 103 Carbon Dioxide 23 BUN 15 Creatinine 1.13 Assessment and Plan Assessment Anesthesia Assessment: Chart Reviewed Documented by User: Tamiko Peetrson MD 02/29/24 09:24 PMFSH Past Medical History Medical History Tobacco use disorder Alcoholism Anxiety, generalized Lipid disorder Hypertension, essential Family History Family history of problems with anesthesia: No Surgical History Surgical History Hx of appendectomy H/O colonoscopy History of Problems with Anesthesia: No Social History Social History Housing: House Patient Tobacco Use Status: Current everyday Tobacco user Tobacco use type: Cigarette Cigarette Packs Per Day: 1 Cigarettes Per Day: 20 Years Smoked: 25 e-Cigarette/Vaping Use: Never Used Use of substances other than those prescribed or required for medical reasons: Yes Substance Use Type Other:: Smoke Substance Use Frequency: Daily Have you been hit, kicked, punched, or otherwise hurt by someone within the past year? If so, by whom?: No Advance Directives: No Advance Directives Information Provided: Yes Recently lost weight without trying: No Nutrition Risks: No Nutritional Risk Poor oral hygiene: No service: No Current occupational status: employed Cognitive needs: No Hearing needs: No Vision needs: No Meds Allergies Allergy/AdvReac Type Severity Reaction Status Date / Time No Known Allergies Allergy Verified 02/11/24 12:37 [No Known Allergies*] Exam Airway Mallampati Class: II TM Dist: >3cm Neck ROM: Full Heart: rrr Lungs: cta Assessment and Plan Assessment Anesthesia Assessment: Anesthesia Plan Discussed Final Anesthetic Review Family History of Problems with Anesthesia: No History of Problems with Anesthesia: No NPO: Yes Final Preanesthetic Review: No Changes in Pt Med Stat, Meds/Allgs Chart Reviewed, Consent Obtained/Reviewed and Anes Risks/Benef Reviewed Patient Risk: Low Procedure Risk: Low Anesthetic Plan Anesthetic Plan: MAC: Disposition: Standard PACU
[2024-02-29 07:57] VITALS: BMI 24.4
[2024-02-29 08:15] VITALS: BP 125/78; PULSE 72; RESP 16; TEMP 36.5; O2SAT 99
[2024-02-29] MEDS: Lactated Ringers 1,000 ML 100 ML IVCONT (08:17)
--- NOTE | 2024-02-29 08:41 | MHC.SHP ---
Pre-Procedural Eval Section A - 24 Hr Update-Section A only Date of Service: 02/29/24 Section B - Complete if H&P > 30 days Chief Complaint: rectal bleeding,hx of colonic polyps Details of Present Illness: see H&P no changes Relevant Family History (Specify if Yes): No Relevant Social History: None Present Medications: see Short Stay Collaborative assessment Medical History: No relevant PMH History of Previous Operations: No relevant previous surgery Allergies: Allergies Allergy/AdvReac Type Severity Reaction Status Date / Time No Known Allergies Allergy Verified 02/11/24 12:37 [No Known Allergies*] Review of Systems Sugical H&P ROS: Negative: Constitution, Cardiovascular, Respiratory, Neurological, Psychiatric, Hem-Onc, Allergic/Immunologic, Gastrointestinal, Genitourinary, Musculoskeletal, Integumentary, Endocrine and Eyes/Ears/Nose/Throat Exam Surgical H&P Exam: Normal: HEENT, Normal: Heart, Normal: Lungs, Normal: Extremities, Normal: Abdomen, Normal: Skin and Normal: Neurological Plan Diagnosis/Plan: Unchanged I have reviewed the history and physical and performed a pertinent physical examination on my patient. No changes have occurred unless specified. Time Spent With Patient Time: Total time managing care of this patient today ____ minutes.
[2024-02-29 09:13] VITALS: BP 94/59; PULSE 72; RESP 16; TEMP 36.1; O2SAT 96
[2024-02-29 09:28] VITALS: BP 115/74; PULSE 66; RESP 16; TEMP 36.1; O2SAT 100
--- NOTE | 2024-02-29 09:39 | OP_ITS ---
DATE OF SERVICE: 02/29/2024 SURGEON: Олег Skinner MD INDICATIONS: Colon cancer screening and prior history of adenomatous colon polyps. PREOPERATIVE DIAGNOSIS: POSTOPERATIVE DIAGNOSIS: PROCEDURE PERFORMED: Colonoscopy to the terminal ileum with snare polypectomy. ESTIMATED BLOOD LOSS: COMPLICATIONS: ANESTHESIA: Medications, monitored anesthesia care. ASSISTANTS: SPECIMENS: DESCRIPTION OF PROCEDURE: History and physical performed. The risks and benefits of the procedure were explained to the patient. Informed consent was obtained. The patient was placed in the left lateral decubitus position. A digital rectal exam was performed and was found to be normal. The Olympus pediatric video colonoscope was introduced into the rectum and advanced to the cecum. The cecum was identified by transillumination, palpation, and identification of ileocecal valve. Examination was performed. The scope was removed. He tolerated the procedure well and was returned to recovery area in stable condition. FINDINGS: The terminal ileum was examined and appeared normal. The visualized colonic mucosa was within normal limits without evidence of masses or ulcers. 2 polyps were identified. All measured less than 20 mm and removed with a snare. These were located at 35 cm. No other polyps were seen. Retroflexed examination showed some minor irritation of internal hemorrhoids and there were some skin tags identified on the external rectum. There was no evidence of recurrent anogenital warts. IMPRESSION: Colon polyps. RECOMMENDATION: Follow up the biopsy results. MD GUS Gonzales/ELO / [id number] MTDAdry
== END 2024-02-29 09:44 | disposition home or self-care (01) ==
PROVIDERS: PCP Internal Medicine; Visit Provider Internal Medicine Gastroenterology
PROC: 0DJD8ZZ Inspection of Lower Intestinal Tract, Via Natural or Artificial Opening Endoscopic (ICD-10-PCS; CPT 45378; principal; 2024-02-29 09:00)
DX: K62.5 Hemorrhage of anus and rectum (principal); Z86.0101 Personal history of adenomatous and serrated colon polyps; D12.5 Benign neoplasm of sigmoid colon; K64.8 Other hemorrhoids; K64.4 Residual hemorrhoidal skin tags; Z83.79 Family history of other diseases of the digestive system; I10 Essential (primary) hypertension; E78.5 Hyperlipidemia, unspecified; F41.1 Generalized anxiety disorder; Z79.899 Other long term (current) drug therapy; F17.210 Nicotine dependence, cigarettes, uncomplicated
CPT/HCPCS: 45385; 88305; J2704

== ENCOUNTER 2024-05-12 14:04 | Outpatient (AMB) | payer OTHER, SELFPAY ==
[2024-05-12 14:05] VITALS: BP 134/76; PULSE 76; O2SAT 98; BMI 26.7
--- NOTE | 2024-05-12 14:05 | MHC.PC.OV ---
Vital Signs 05/12/24 14:05 Height 5 ft 9 in Weight 181 lb BMI 26.7 BP 134/76 Blood Pressure Location Rt brachial Position Sitting Pulse 76 Pulse Source Pulse Oximeter Pulse Oximetry (%) 98 Oxygen Delivery Method Room Air Intake Visit Reasons: 3m follow up Allergies No Known Allergies [No Known Allergies*] Allergy (Verified 05/12/24 14:08) Medication List - Last Reconciled 05/12/24 by Marilou Bejarano MD amlodipine 10 mg PO DAILY fenofibrate nanocrystallized 145 mg PO DAILY losartan-hydrochlorothiazide 100-25 mg 1 tab PO DAILY 90 days lovastatin 40 mg PO DAILY 90 days metoprolol succinate ER 100 mg PO DAILY paroxetine HCl ER 25 mg PO DAILY Tobacco use date assessed: 05/12/24 Dental Screening Dental Screen Date: 05/12/24 Did you have a dental visit in the last 12 months?: Yes Did you have a dental problem in the last 6 months where you did not have access to dental care?: No Was dental information given to patient?: Patient has dentist HPI 3m follow up HPI Details - The patient is a 58-year-old male presenting for a medication refill and routine follow-up . - Persistent iron deficiency anemia with previous labs showing slight anemia, microcytic - [place] of hypertension, controlled on current medication regimen without dose alteration. - Anxiety disorder is managed effectively with peroxidine 25 mg. - Patient continues with current antihyperlipidemic medications for his known hyperlipidemia. - Concerns of emphysema are supported due to smoking history, evident with wheezing noted in respiration. - Known rectal skin lesions, suspected as warts, with ongoing but informal monitoring. has seen derm - No recent changes in health status regarding these conditions were reported other than monitored emphysema discussion. Problem List - Iron deficiency anemia - Hypertension - Emphysema - Anxiety - Hyperlipidemia Medications - Amlodipine 10 mg for hypertension - Losartan hydrochlorothiazide 100-25 mg for hypertension - Metoprolol 100 mg for hypertension - Peroxidine 25 mg for anxiety - Lobostretin 40 mg for hyperlipidemia - Fineofavorite 145 mg for hyperlipidemia Patient Instructions - Start taking the iron supplement once daily as prescribed, although it can be obtained [id number]. - Expect to receive the prescribed iron supplement at [facility] pharmacy. - Reduce smoking habits to prevent exacerbating emphysema. - Monitor for any changes in respiratory symptoms and seek care if shortness of breath occurs. - Follow up with labs as instructed, likely to be scheduled for the next visit. Plan The visit centered on stabilizing and monitoring the patient's chronic conditions. The iron deficiency anemia management will be addressed through the introduction of an iron supplement, which is expected to stabilize hemoglobin levels. Current medication regimens for hypertension, anxiety, and hyperlipidemia continue unchanged due to effective control. Emphysema consideration prompts a suggestion for smoking reduction, and inhaler use may become necessary should breathing difficulties emerge. Rectal lesions surveillance will proceed as previously with no immediate property insurance agent engagement, stressing adherence to colonoscopy schedules. The patient received comprehensive instructions on medication procurement and lifestyle adjustments to mitigate their health concerns and will undertake labs during the follow-up visit to ensure condition stability. Review of Systems - General: Denies changes in health status. - Respiratory: Reports smoking; denies shortness of breath. - Gastrointestinal: Denies hemorrhoids; endorses presence of rectal warts. - Hematologic: Reports previous diagnosis of slight anemia. - Psychiatric: Current management of anxiety with medication compliance. General: No fever no chills neurological: No headaches no dizziness ear nose throat: No sore throat no hearing difficulty no ear pain cardiovascular: No syncope, no chest pain, no palpitations gastrointestinal: No nausea vomiting or diarrhea endocrine: No polyuria polydipsia no heat intolerance genitourinary: No dysuria skin: No new complaints Physical Exam general: No acute distress HEENT: No acute findings neck: Supple respiratory system: Able to talk in full sentences, audible wheeze, no stridor cardiovascular: S1-S2 gastrointestinal: No pain extremities: No new findings PERSONNEL SECURITY SPECIALIST: Alert awake oriented x3 motor sensory intact skin: Normal turgor [facility] Medical History Tobacco use disorder Alcoholism Anxiety, generalized Lipid disorder Hypertension, essential Surgical History Hx of appendectomy H/O colonoscopy Social History Housing: House Patient Tobacco Use Status: Current everyday Tobacco user Tobacco use type: Cigarette Cigarette Packs Per Day: 1 Cigarettes Per Day: 20 Years Smoked: 25 Packs Per Year: 25 Packs per year/per ci.00 e-Cigarette/Vaping Use: Never Used service: No Current occupational status: employed Cognitive needs: No Hearing needs: No Vision needs: No Questionnaire PHQ-9 Over the last 2 weeks, how often have you been bothered by any of the following problems? 1. Little interest or pleasure in doing things: not at all 2. Feeling down, depressed, or hopeless: not at all 3. Trouble falling or staying asleep, or sleeping too much: not at all 4. Feeling tired or having little energy: not at all 5. Poor appetite or overeating: not at all 6. Feeling bad about yourself - or that you are a failure or have let yourself or your family down: not at all 7. Trouble concentrating on things, such as reading the newspaper or watching television: not at all 8. Moving or speaking so slowly that other people could have noticed. Or the opposite - being so fidgety or restless that you have been moving around a lot more than usual: not at all 9. Thoughts that you would be better off or of hurting yourself in some way: not at all Total score: 0 Depression Screening Interpretation: Negative Depression Screening Done: Yes 26938 - PHQ-9 Billing: Yes Source: Developed by Drs. Myles Evans, Eileen Cespedes, Dayo Bowling and colleagues, with an educational anne-marie from [employer]. Thrive Questionnaire Date Thrive assessed: 05/12/24 I am a: Patient What is your living situation today?: I have a steady place to live Within the past 12 months, did the food you bought not last and you didn't have the money to get more?: Never true Within the past 12 months, did you worry whether your food would run out before you got money to buy more?: Never true Do you have trouble paying for medicines?: No Do you have trouble getting transportation to medical appointments?: No Do you have trouble paying your heating and electricity bill?: No Do you have trouble taking care of your child, family member or friend?: No Do you have trouble with day-to-day activities such as bathing, preparing meals, shopping, managing finances, etc.?: No Are you currently unemployed and looking for a job?: No Are you interested in more education?: No Please select the resources that you would like help with: None Currently or been in a relationship where the following occur: No concerns reported THRIVE Score: 0 AUDIT C Alcohol Use Questionnaire (AUDIT-C) 1. How often do you have a drink containing alcohol?: 4 or more times a week 2. How many drinks containing alcohol do you have on a typical day when you are drinking?: 10 or more 3. How often do you have six or more drinks on one occasion?: Daily or almost daily Total Score: 12 Score Reviewed/Action Taken: Yes STEFANIE-7 AMB Questionnaire STEFANIE-7 Date STEFANIE - 7 assessed: 05/12/24 Feeling nervous, anxious, or on edge: 1 = Several days Not being able to stop or control worryin = Not at all Worrying too much about different things: 0 = Not at all Trouble relaxin = Not at all Being so restless that it is hard to sit still: 0 = Not at all Becoming easily annoyed or irritable: 0 = Not at all Feeling afraid as if something awful might happen: 0 = Not at all Total STEFANIE-7 score (0-4 normal; 5-9 mild; 10-14 moderate; 15-21 severe): 1 Source: Developed by Drs. Myles Evans, Eileen Cespedes, Dayo Bowling and colleagues, with an educational anne-marie from [employer]. STEFANIE-7 Assessment Billing STEFANIE-7 Assessment Tool: STEFANIE-7 Assessment 65900 Physical exam (Primary Care) Vital Signs: Last Vital Signs Pulse 76 05/12/24 14:05 BP 134/76 05/12/24 14:05 Pulse Ox 98 05/12/24 14:05 Oxygen Delivery Method Room Air 05/12/24 14:05 BMI result Body Mass Index 26.7 Tobacco/Smoking Status: Tobacco use Status Tobacco use date assessed 05/12/24 05/12/24 14:09 Patient Tobacco Use Status Current everyday Tobacco 05/12/24 14:06 Tobacco use type Cigarette 05/12/24 14:06 e-Cigarette/Vaping Use Never Used 05/12/24 14:06 PHQ-9: PHQ-9 Score PHQ-9: Total score 0 05/12/24 14:09 Depression Screening Interpretation: Negative Thrive Assessment: Date of Thrive Assessment Date Thrive assessed 05/12/24 05/12/24 14:09 Currently or been in a relationship where the following occur: No concerns reported Coding Level of Care Code Est Pt Level 4 (46978) Diagnoses Hypertension, essential I10 Lipid disorder E78.9 Anxiety, generalized F41.1 Alcoholism F10.20 Low hemoglobin D64.9 Tobacco abuse Z72.0 Wheezing on left side of chest on inhalation R06.2 Tobacco abuse counseling Z71.6 Additional Codes STEFANIE-7 Assessment Billing - STEFANIE-7 Assessment Tool: STEFANIE-7 Assessment 67618 ([id number]) PHQ-9 - 34451 - PHQ-9 Billing: Yes ([id number]) Assessment & Plan Assessment & Plan (1) Hypertension, essential: Code(s): I10 - Essential (primary) hypertension Category: Medical (2) Lipid disorder: Code(s): E78.9 - Disorder of lipoprotein metabolism, unspecified Category: Medical (3) Anxiety, generalized: Code(s): F41.1 - Generalized anxiety disorder Category: Medical (4) Alcoholism: Code(s): F10.20 - Alcohol dependence, uncomplicated Category: Medical (5) Low hemoglobin: Code(s): D64.9 - Anemia, unspecified Category: Medical (6) Tobacco abuse: Code(s): Z72.0 - Tobacco use Category: Medical (7) Wheezing on left side of chest on inhalation: Code(s): R06.2 - Wheezing Category: Medical (8) Tobacco abuse counseling: Code(s): Z71.6 - Tobacco abuse counseling Category: Medical Plan - The patient is a 58-year-old male presenting for a medication refill and routine follow-up . - Persistent iron deficiency anemia with previous labs showing slight anemia, microcytic - [place] of hypertension, controlled on current medication regimen without dose alteration. - Anxiety disorder is managed effectively with peroxidine 25 mg. - Patient continues with current antihyperlipidemic medications for his known hyperlipidemia. - Concerns of emphysema are supported due to smoking history, evident with wheezing noted in respiration. - Known rectal skin lesions, suspected as warts, with ongoing but informal monitoring. has seen derm - No recent changes in health status regarding these conditions were reported other than monitored emphysema discussion. Problem List - Iron deficiency anemia - Hypertension - Emphysema - Anxiety - Hyperlipidemia Medications - Amlodipine 10 mg for hypertension - Losartan hydrochlorothiazide 100-25 mg for hypertension - Metoprolol 100 mg for hypertension - Peroxidine 25 mg for anxiety - Lobostretin 40 mg for hyperlipidemia - Fineofavorite 145 mg for hyperlipidemia Patient Instructions - Start taking the iron supplement once daily as prescribed, although it can be obtained [id number]. - Expect to receive the prescribed iron supplement at [facility] pharmacy. - Reduce smoking habits to prevent exacerbating emphysema. - Monitor for any changes in respiratory symptoms and seek care if shortness of breath occurs. - Follow up with labs as instructed, likely to be scheduled for the next visit. Plan The visit centered on stabilizing and monitoring the patient's chronic conditions. The iron deficiency anemia management will be addressed through the introduction of an iron supplement, which is expected to stabilize hemoglobin levels. Current medication regimens for hypertension, anxiety, and hyperlipidemia continue unchanged due to effective control. Emphysema consideration prompts a suggestion for smoking reduction, and inhaler use may become necessary should breathing difficulties emerge. Rectal lesions surveillance will proceed as previously with no immediate property insurance agent engagement, stressing adherence to colonoscopy schedules. The patient received comprehensive instructions on medication procurement and lifestyle adjustments to mitigate their health concerns and will undertake labs during the follow-up visit to ensure condition stability. Orders: Orders Comprehensive [place]. Panel Fast 3 Months D64.9 - Anemia, unspecified, E78.9 - Disorder of lipoprotein metabolism, unspecified, F10.20 - Alcohol dependence, uncomplicated, F41.1 - Generalized anxiety disorder, I10 - Essential (primary) hypertension, R06.2 - Wheezing, Z71.6 - Tobacco abuse counseling, Z72.0 - Tobacco use Lipid Panel 3 Months D64.9 - Anemia, unspecified, E78.9 - Disorder of lipoprotein metabolism, unspecified, F10.20 - Alcohol dependence, uncomplicated, F41.1 - Generalized anxiety disorder, I10 - Essential (primary) hypertension, R06.2 - Wheezing, Z71.6 - Tobacco abuse counseling, Z72.0 - Tobacco use Complete Blood Count Auto Diff 3 Months D64.9 - Anemia, unspecified, E78.9 - Disorder of lipoprotein metabolism, unspecified, F10.20 - Alcohol dependence, uncomplicated, F41.1 - Generalized anxiety disorder, I10 - Essential (primary) hypertension, R06.2 - Wheezing, Z71.6 - Tobacco abuse counseling, Z72.0 - Tobacco use Ferritin 3 Months D64.9 - Anemia, unspecified, E78.9 - Disorder of lipoprotein metabolism, unspecified, F10.20 - Alcohol dependence, uncomplicated, F41.1 - Generalized anxiety disorder, I10 - Essential (primary) hypertension, R06.2 - Wheezing, Z71.6 - Tobacco abuse counseling, Z72.0 - Tobacco use Medications: New ferrous sulfate 324 mg PO BID 180 tabs 0RF 90 days
--- OUTSIDE RECORDS SUMMARY | 2024-05-12 14:07 | XMS_ITS ---
Author Organization [facility] Address [address] [place] [address] Care Team Providers Care Cleaning Technician Name Role Phone Darci ADAMSON, [facility] Primary Care Provider Олег Joiner Jr [phone] REASON FOR VISIT HAVE BILLING RESUBMIT CLAIM Encounters Encounter Location Date Provider Diagnosis [facility] [address] [place] [address] 02/23/2024 Олег Skinner Jr PLAN OF TREATMENT No Information
--- OUTSIDE RECORDS SUMMARY | 2024-05-12 14:07 | XMS_ITS ---
Author Organization [facility] Address [address] [place] [address] Care Team Providers Care Gear Shaver Set Up Operator Name Role Phone Darci ADAMSON, [facility] Primary [facility] Provider Олег Joiner Jr REASON FOR VISIT pathology Encounters Encounter Location Date Provider Diagnosis [facility] [address] [place] [address] 03/06/2024 Олег Skinner Jr PLAN OF TREATMENT No Information
--- OUTSIDE RECORDS SUMMARY | 2024-05-12 14:07 | XMS_ITS ---
Author Organization [facility] Address [address] [place] [address] Care Team Providers Care Hogshead Head Matcher Name Role Phone Darci [facility], [facility] Primary [facility] Provider Олег Joiner Jr [phone] REASON FOR VISIT hx polyps,rectal bleeding Encounters Encounter Location Date Provider Diagnosis [facility] [address] [place] [phone] 02/29/2024 Олег Skinner Jr Colon cancer screening Z12.11 ; Colon polyps K63.5 and History of colon polyps Z86.0100 ASSESSMENTS Encounter Date Diagnosis Assessment Notes Treatment Notes Treatment Clinical Notes 02/29/2024 Colon cancer screening (ICD-10 - Z12.11) 02/29/2024 Colon polyps (ICD-10 - K63.5) 02/29/2024 History of colon polyps (ICD-10 - Z86.0100) PLAN OF TREATMENT No Information
--- OUTSIDE RECORDS SUMMARY | 2024-05-12 14:07 | XMS_ITS | Patient Health Record ---
Author Organization [facility] Address [address] [facility] [address] [place] [address] Care Team Providers Care Box Hinge And Lock Attacher Name Role Phone Darci ADAMSON, [facility] Primary Care Provider Олег Joiner Jr Unavailable ALLERGIES No Known Allergies RESULTS Component Value Reference Range Notes Pathology Reviewed date:03/06/2024 09:08:00 AM Interpretation: Performing Lab:[facility], [address] [place] [phone] Notes/Report: REASON FOR REFERRAL Referring Provider First Name Marilou Referring Provider Last Name Darci Referring Provider Speciality Internal M edicine Referred Organization [facility] Referred Provider Олег Skinner Jr Referred Address [address] [place] [address],[facility] [address] [place] [phone], Referred Provider Specialty Gastroentero logy Referral Priority Routine MEDICATIONS Medication SIG (Take, Route, Frequency, Duration) Notes Start Date End Date Status Fenofibrate Active MiraLax (colon prep) 17 GM/SCOOP mixed with Gatorade or Crystal Light Orally begin at 5:00 p.m. the day before the procedure for 1 day 01/20/2024 Active PARoxetine HCl ER Ac tive Losartan Potassium-HCTZ 100-25 MG TAKE 1 TABLET BY MOUTH EVERY DAY FOR 90 DAYS Oral for 90 Active Metoprolol Succinate ER Active Lovastatin Active SOCIAL HISTORY Tobacco Use: Social History Observation Description Date Details (start date - stop date) Current Smoker NA - NA Sex Assigned At : Social History Observation Description Sex Assigned At Unknown Tobacco Use/Smoking Question Answer Notes Patient is a current smoker How often do you smoke cigarettes? every day How many cigarettes a day do you smoke? 11-20 Alcohol Screen Question Answer Notes Did you have a drink contain ing alcohol in the past year? Yes How often did you have a dri nk containing alcohol in the past year? 4 or more times a week (4 points) How many drinks did you have on a typical day when you were drinking in the past year? 10 or more drinks (4 points) How often did you have 6 or more drinks on one occasion in the past year? Never (0 point) Points 8 Interpretation Positive PROBLEMS Problem Type ICD Code Onset Dates Problem Status W/U Status Risk SNOMED Code Notes Problem Rectal bleeding (K62.5) Active confirmed 08424315 Problem Personal history of colonic polyps (Z86.010) Active confirmed 705499288 VITAL SIGNS Blood pressure diastolic 00 mm Hg 01/20/2024 Height 69 in 01/20/2024 Blood pressure systolic 00 mm Hg 01/20/2024 Weight 173 lbs 01/20/2024 BMI 25.54 kg/m2 01/20/2024 Encounters Encounter Location Date Provider Diagnosis [facility] [place] Outpatient [address] [place] [phone] 02/29/2024 Олег Skinner Jr Colon cancer screening Z12.11 ; Colon polyps K63.5 and History of colon polyps Z86.0100 [facility] [address] [place] [address] [address] [place] [phone] 01/20/2024 Олег Skinner Jr Rectal bleeding K62.5 and Personal history of colonic polyps Z86.010 [facility] [address] [place] [address] Drive [address] [place] [phone] 02/23/2024 Олег Skinner Jr [facility] [address] [place] [address] Drive [address] [place] [phone] 03/06/2024 Олег Skinner Jr ASSESSMENTS Encounter Date Diagnosis Assessment Notes Treatment Notes Treatment Clinical Notes 02/29/2024 Colon cancer screening (ICD-10 - Z12.11) 02/29/2024 Colon polyps (ICD-10 - K63.5) 01/20/2024 Rectal bleeding (ICD-10 - K62.5) Colonoscopy material was printed 01/20/2024 Personal history of colonic polyps (ICD-10 - Z86.010) 02/29/2024 History of colon polyps (ICD-10 - Z86.0100) PLAN OF TREATMENT Future Test Test Name Order Date COLONOSCOPY 04/13/2014 COLONOSCOPY 01/20/2024 Insurance Providers Payer Name Payer Address Payer Phone Subscriber Number Group Number Insured Name Patient Relationship to Insured Coverage Start Date Coverage End Date [employer] [address] KANIKA SAUL [phone] [id number] VITO EMANUEL Self - patient is the insured MEDICAL (GENERAL) HISTORY Medical History History ICD Code Hypertension Hyperlipidemia Anxiety Colonoscopy 08/15, tubular adenoma, five- year followup Surgical History Surgery Date(Month/Year) appendectomy 1998
== END 2024-05-12 15:00 | disposition home or self-care (01) ==
PROVIDERS: PCP Internal Medicine; Visit Provider Internal Medicine
DX: I10 Essential (primary) hypertension (principal); E78.9 Disorder of lipoprotein metabolism, unspecified; F41.1 Generalized anxiety disorder; F10.20 Alcohol dependence, uncomplicated; D64.9 Anemia, unspecified; Z72.0 Tobacco use; R06.2 Wheezing; Z71.6 Tobacco abuse counseling

== ENCOUNTER → 2024-05-12 14:04 | Outpatient (BNVA) | payer OTHER, SELFPAY | PROVIDERS: PCP Internal Medicine; Visit Provider Internal Medicine | DX: I10 Essential (primary) hypertension (principal); E78.9 Disorder of lipoprotein metabolism, unspecified; F41.1 Generalized anxiety disorder; F10.20 Alcohol dependence, uncomplicated; D64.9 Anemia, unspecified; R06.2 Wheezing; D50.9 Iron deficiency anemia, unspecified; Z79.899 Other long term (current) drug therapy; Z72.0 Tobacco use; Z71.6 Tobacco abuse counseling | CPT/HCPCS: 96127 ==

== ENCOUNTER 2024-08-08 15:01 | Outpatient (AMB) | payer OTHER, SELFPAY ==
--- NOTE | 2024-08-08 15:08 | A.OFFPC_ITS ---
Vital Signs 08/08/24 15:09 Height 5 ft 9 in Weight 180 lb BMI 26.6 BP 134/82 Blood Pressure Location Rt brachial Position Sitting Respiration 18 Pulse 74 Pulse Source Pulse Oximeter Pulse Oximetry (%) 99 Oxygen Delivery Method Room Air Intake Visit Reasons: 3m follow up Allergies No Known Allergies [No Known Allergies*] Allergy (Verified 08/08/24 15:11) Medication List - Last Reconciled 08/08/24 by Marilou Bejarano MD amlodipine 10 mg PO DAILY fenofibrate nanocrystallized 145 mg PO DAILY ferrous sulfate 324 mg PO BID 90 days losartan-hydrochlorothiazide 100-25 mg 1 tab PO DAILY 90 days lovastatin 40 mg PO DAILY 90 days metoprolol succinate ER 100 mg PO DAILY paroxetine HCl ER 25 mg PO DAILY Tobacco use date assessed: 08/08/24 Dental Screening Dental Screen Date: 08/08/24 Did you have a dental visit in the last 12 months?: Yes Did you have a dental problem in the last 6 months where you did not have access to dental care?: No Was dental information given to patient?: Patient has dentist HPI 3m follow up HPI Details - The patient is a 59-year-old male pres enting for a medication refill and routine follow-up examination. - Persistent iron deficiency anemia with previous labs showing slight anemia,taking iron supplements. Patient have hemorrhoids - hypertension, controlled on current m edication regimen without dose alteration. - Anxiety disorder is managed effectivel y with peroxidine 25 mg. - Patient continues with current antihyp erlipidemic medications for his known hyperlipidemia. - Concerns of emphysema are supported du e to smoking history, however no wheezing today - continued to drink alcohol We have discussed the toxicity of alcohol many times Problem List - Iron deficiency anemia - Hypertension - Emphysema - Anxiety - Hyperlipidemia Medications - Amlodipine 10 mg for hypertension - Losartan hydrochlorothiazide 100-25 mg for hypertension - Metoprolol 100 mg for hypertension - Peroxidine 25 mg for anxiety - Lobostretin 40 mg for hyperlipidemia - Fineofavorite 145 mg for hyperlipidemi a Patient Instructions - continue iron supplement once daily as prescribed. - Reduce smoking habits to prevent exace rbating emphysema. - Monitor for any changes in respiratory symptoms and seek care if shortness of breath occurs. - Follow up with labs as instructed, lik edd to be scheduled for the next visit. - stopped drinking alcohol - continue all other medications Review of Systems General: No fever no chills neurological: No headaches no dizziness ear nose throat: No sore throat no hearing difficulty no ear pain cardiovascular: No syncope, no chest pain, no palpitations gastrointestinal: No nausea vomiting or diarrhea endocrine: No polyuria polydipsia no heat intolerance genitourinary: No dysuria skin: No new complaints Physical Exam general: No acute distress HEENT: No acute findings neck: Supple respiratory system: Able to talk in full sentences, no wheeze, no stridor cardiovascular: S1-S2 regular in rate and rhythm gastrointestinal: No pain extremities: No new findings [employer]: Alert awake oriented x3 motor sensory intact skin: Normal turgor PFSH Medical History Tobacco use disorder Alcoholism Anxiety, generalized Lipid disorder Hypertension, essential Surgical History Hx of appendectomy H/O colonoscopy Social History Housing: House Patient Tobacco Use Status: Current everyday Tobacco user Tobacco use type: Cigarette Cigarette Packs Per Day: 1 Cigarettes Per Day: 20 Years Smoked: 25 Packs Per Year: 25 Packs per year/per ci.00 e-Cigarette/Vaping Use: Never Used service: No Current occupational status: employed Cognitive needs: No Hearing needs: No Vision needs: No Questionnaire Thrive Questionnaire Date Thrive assessed: 05/12/24 STEFANIE-7 AMB Questionnaire STEFANIE-7 Date STEFANIE - 7 assessed: 05/12/24 Source: Developed by Drs. Myles Evans, Eileen Cespedes, Dayo Bowling and colleagues, with an educational anne-marie from [employer]. Physical exam (Primary Care) Vital Signs: Last Vital Signs Pulse 74 08/08/24 15:09 Resp 18 08/08/24 15:09 BP 134/82 08/08/24 15:09 Pulse Ox 99 08/08/24 15:09 Oxygen Delivery Method Room Air 08/08/24 15:09 BMI result Body Mass Index 26.6 Tobacco/Smoking Status: Tobacco use Status Tobacco use date assessed 08/08/24 08/08/24 15:13 Patient Tobacco Use Status Current everyday Tobacco 08/08/24 15:13 Tobacco use type Cigarette 08/08/24 15:13 e-Cigarette/Vaping Use Never Used 08/08/24 15:13 Thrive Assessment: Date of Thrive Assessment Date Thrive assessed 05/12/24 08/08/24 15:13 Coding Level of Care Code Est Pt Level 4 (17792) Diagnoses Hypertension, essential I10 Lipid disorder E78.9 Anxiety, generalized F41.1 Alcoholism F10.20 Low hemoglobin D64.9 Tobacco abuse Z72.0 Assessment & Plan Assessment & Plan (1) Hypertension, essential: Code(s): I10 - Essential (primary) hypertension Category: Medical (2) Lipid disorder: Code(s): E78.9 - Disorder of lipoprotein metabolism, unspecified Category: Medical (3) Anxiety, generalized: Code(s): F41.1 - Generalized anxiety disorder Category: Medical (4) Alcoholism: Code(s): F10.20 - Alcohol dependence, uncomplicated Category: Medical (5) Low hemoglobin: Code(s): D64.9 - Anemia, unspecified Category: Medical (6) Tobacco abuse: Code(s): Z72.0 - Tobacco use Category: Medical Plan - The patient is a 59-year-old male presenting for a medication refill and routine follow-up examination. - Persistent iron deficiency anemia with previous labs showing slight anemia,taking iron supplements. Patient have hemorrhoids - hypertension, controlled on current medication regimen without dose alteration. - Anxiety disorder is managed effectively with peroxidine 25 mg. - Patient continues with current antihyperlipidemic medications for his known hyperlipidemia. - Concerns of emphysema are supported due to smoking history, however no wheezing today - continued to drink alcohol We have discussed the toxicity of alcohol many times Problem List - Iron deficiency anemia - Hypertension - Emphysema - Anxiety - Hyperlipidemia Medications - Amlodipine 10 mg for hypertension - Losartan hydrochlorothiazide 100-25 mg for hypertension - Metoprolol 100 mg for hypertension - Peroxidine 25 mg for anxiety - Lobostretin 40 mg for hyperlipidemia - Fineofavorite 145 mg for hyperlipidemia Patient Instructions - continue iron supplement once daily as prescribed. - Reduce smoking habits to prevent exacerbating emphysema. - Monitor for any changes in respiratory symptoms and seek care if shortness of breath occurs. - Follow up with labs as instructed, likely to be scheduled for the next visit. - stopped drinking alcohol - continue all other medications
[2024-08-08 15:09] VITALS: BP 134/82; PULSE 74; RESP 18; O2SAT 99; BMI 26.6
--- OUTSIDE RECORDS SUMMARY | 2024-08-08 18:05 | XMS_ITS ---
Author Organization [facility] Address [address] [place] [address] Care Team Providers Care Ed Manager Name Role Phone Darci ADAMSON, Marilou Primary Care Provider Олег Joiner Jr REASON FOR VISIT hx polyps,rectal bleeding Encounters Encounter Location Date Provider Diagnosis [facility] [place] Outpatient [address] [place] [phone] 02/29/2024 Олег Skinner Jr Colon cancer screening [...] * VITO EMANUELDOB:[birth year] (59 yo M)Acc No.[id number]:02/29/2024 COLON WITH MAC Patient:?VITO EMANUEL Provider:?Олег Skinner MD :1965???Age:58 Y???Sex:Male Darrin e:02/29/2024 Address:[facility] [place], [id number] Pcp:Marilou Bejarano MD Subjective: * Chief Complaints: * ???1. Hx polyps,rectal bleed ing. * Medical History:? Objective: * Vitals:? Assessment: * Assessment: 1.?Colon cancer screening - Z12.11 (Primary)???2.?Colon polyps - K63.5???3.?History of colon polyps - Z86.0100??? Plan: * Treatment: * Procedure Codes:?22077 LESIO N REMOVAL COLONOSCOPY, 0529F INTRVL 3+YRS PTS CLNSCP DOCD, 0528F RCMND FLW-UP 10 YRS DOCD, Modifiers: 1P * * The named appointment provid er may or may not be the originator of this progress note, and it is not deemed complete until electronically signed by the appointment provider. Sign off status: Pending * Provider:?Олег Skinner MD Date:?1 Generated for Rosalie ramirez/Ayo/Janinaitting on:?08/08/2024 06:05 PM EDT
--- OUTSIDE RECORDS SUMMARY | 2024-08-08 18:05 | XMS_ITS ---
Author Organization [facility] Address [address] [place] [address] Care Team Providers Care Hand Shaper Name Role Phone Darci ADAMSON, Asma Primary Care Provider Олег Joiner Jr REASON FOR VISIT HAVE BILLING RESUBMIT CLAIM Encounters Encounter Location Date Provider Diagnosis [facility] [address] [place] [address] 02/23/2024 Олег Skinner Jr Plan Of Treatment No Information Progress Notes * MANJULAVITO DELACRUZDOB:[birth year] (58 yo M)Acc No.[id number]:02/23/2024 Patient:?VITO EMANUEL :1965???Age:58 Y???Sex:Male Address:[facility] [place], [address] * true * Date:? Generated for Satnami james/Ayo/eTransmitting on:?08/08/2024 06:05 PM EDT
--- OUTSIDE RECORDS SUMMARY | 2024-08-08 18:05 | XMS_ITS | Patient Health Record ---
Author Organization [facility] Address [address] [place] [address] Care Team Providers Care Hop Grower Name Role Phone Darci ADAMSON, [facility] Primary Care Provider Олег Joiner Jr Allergies No Known Allergies Results Component Value Reference Range Notes Pathology Reviewed date:03/06/2024 09:08:00 AM Interpretation: Performing Lab:[facility], [address] [place] [phone] Notes/Report: Name: Lawson Emanuel Age/Sex: 58/M : 1965 Unit#: [id number] Attend Dr: Олег Skinner MD Re02/29/24 Status : [facility] Location: [facility] Disch: SPEC : [id number] RECD : 02/29/24 STATUS: TYRESE DORANTES NUM: [id number] SHILPA: 02/29/24 [facility] DR: Олег Skinner MD ENTERED: 02/29/24 SP TYPE: Surgical OTHR DR: Marilou Bejarano MD ORDERED: HE Stain/3, Gross Micro L4 Diagnosis Colon, 35 cm, polype ctomies: Fragments of tubular adenomata; negative for high-grade dysplasia or carcinoma. Clinical History Pre-Op Dx: Rectal bl eeding, hx of colonic polyps Post-Op Dx: Polyps Microscopic Description Microscopic sections reviewed. Material Received Polyps at 35 Gross Description Received in formalin labeled ?polyps at 35? are 4 fragments of yun-white soft tissue measuring 0.2-0.5 cm in greatest dimension which are wrapped in lens paper and entirely submitted for micros copic examination, 4 pieces in cassette A. [facility] Copies To: Олег Skinner MD [facility] [address] [place] [address] [address] [place], [place] [id number] Marilou Bejarano MD [facility] Primary [address] [address] Signed (si gnature on file) Gallito Devlin MD 03/02/24 1313 END OF REPORT Reason For Referral Referring Provider First Name Marilou Referring Provider Last Name Darci Referring Provider Speciality Internal M edicine Referred Organization [facility] Referred Provider Олег Skinner Jr Referred Address [address] [place] [address],[place], [place],[address],[place] Referred Provider Specialty Gastroentero logy Referral Priority Routine Medications Medication SIG (Take, Route, Frequency, Duration) Notes [...] Active Metoprolol Succinate ER Active Lovastatin Active Social History Tobacco Use: Social History Observation Description Date Details (start date - stop date) Current Smoker NA - NA Tobacco Use/Smoking Question Answer Notes Patient is [...] Never (0 point) Points 8 Interpretation Positive Problems Problem Type SNOMED Code ICD Code Onset Dates Problem Status W/U Status Risk Notes Problem 57785604 Rectal bleeding (K62.5) Active confirmed Problem 658898696 Personal history of colonic polyps (Z86.010) Active confirmed Vital Signs Blood pressure diastolic 00 mm Hg 01/20/2024 Height 69 in 01/20/2024 Blood pressure systolic 00 mm Hg 01/20/2024 Weight 173 lbs 01/20/2024 BMI 25.54 kg/m2 01/20/2024 Encounters Encounter Location Date Provider Diagnosis [facility] [place] [address] [place] [phone] 02/29/2024 Олег Skinner Jr Colon cancer screening Z12.11 ; Colon polyps K63.5 and History of colon polyps Z86.0100 [facility] [address] [place] [address] 01/20/2024 Олег Skinner Jr Rectal bleeding K62.5 and Personal history of colonic polyps Z86.010 [facility] [address] [place] [address] 02/23/2024 Олег Skinner Jr [facility] [address] [place] [phone] 03/06/2024 Олег Skinner Jr Assessments Encounter Date Diagnosis (ICD Code) Assessment Notes Treatment Notes Treatment Clinical Notes Section Notes 02/29/2024 Colon cancer screening (ICD-10 - Z12.11) 02/29/2024 Colon polyps (ICD-10 - K63.5) 01/20/2024 Rectal bleeding (ICD-10 - K62.5) Colonoscopy material was printed We discussed the differential diagnosis for rectal bleeding today. We discussed condyloma. We discussed hemorrhoids. We recommended further evaluation with colonoscopy because of his symptoms and his history of previous colon polyps. He is aware of risks and benefits and agrees to proceed. 01/20/2024 Personal history of colonic polyps (ICD-10 - Z86.010) We discussed the differential diagnosis for rectal bleeding today. We discussed condyloma. We discussed hemorrhoids. We recommended further evaluation with colonoscopy because of his symptoms and his history of previous colon polyps. He is aware of risks and benefits and agrees to proceed. 02/29/2024 History of colon polyps (ICD-10 - Z86.0100) Plan Of Treatment Future Test Test Name Order Date COLONOSCOPY 04/13/2014 COLONOSCOPY 01/20/2024 Insurance Providers Payer Name Payer Address Payer Phone Subscriber Number Group Number Insured Name Patient Relationship to Insured Coverage Start Date Coverage End Date [employer] [address] KANIKA SAUL [id number] VITO EMANUEL Self - patient is the insured Medical (General) History Medical History History ICD Code Hypertension Hyperlipidemia Anxiety Colonoscopy 08/15, tubular adenoma, five- year followup Surgical History Surgery Date(Month/Year) appendectomy 1998
--- OUTSIDE RECORDS SUMMARY | 2024-08-08 18:06 | XMS_ITS ---
Author Organization [facility] Address [address] [place] [address] Care Team Providers Care Game Developer Name Role Phone Darci ADAMSON, Asma Primary Care Provider Олег Joiner Jr REASON FOR VISIT pathology Encounters Encounter Location Date Provider Diagnosis [facility] [address] [place] [address] 03/06/2024 Олег Skinner Jr Plan Of Treatment No Information Progress Notes * VITO EMANUELDOB:[birth year] (58 yo M)Acc No.[id number]:03/06/2024 Patient:?VITO EMANUEL :1965???Age:58 Y???Sex:Male Address:[place], [address] * true * Date:? Generated for Satnami james/Ayo/eTransmitting on:?08/08/2024 06:05 PM EDT
== END 2024-08-08 15:30 | disposition home or self-care (01) ==
LOC: HO.HMCC 15:01
PROVIDERS: PCP Internal Medicine; Visit Provider Internal Medicine
DX: I10 Essential (primary) hypertension (principal); E78.9 Disorder of lipoprotein metabolism, unspecified; F41.1 Generalized anxiety disorder; F10.20 Alcohol dependence, uncomplicated; D64.9 Anemia, unspecified; Z72.0 Tobacco use

== ENCOUNTER → 2024-08-08 15:01 | Outpatient (BNVA) | payer OTHER, SELFPAY | PROVIDERS: PCP Internal Medicine; Visit Provider Internal Medicine | DX: I10 Essential (primary) hypertension (principal); E78.9 Disorder of lipoprotein metabolism, unspecified; F41.1 Generalized anxiety disorder; F10.20 Alcohol dependence, uncomplicated; D64.9 Anemia, unspecified; Z72.0 Tobacco use; R06.2 Wheezing; Z71.6 Tobacco abuse counseling ==

== ENCOUNTER 2024-08-12 08:27 | Outpatient (REF) | payer OTHER, SELFPAY ==
--- OUTSIDE RECORDS SUMMARY | 2024-08-12 08:30 | XMS_ITS ---
Author Organization [facility] Address [address] [place] [address] Care Team Providers Care Control Center Operator Name Role Phone Darci ADAMSON, Asma Primary Care Provider Олег Joiner Jr [phone] REASON FOR VISIT HAVE BILLING RESUBMIT CLAIM Encounters Encounter Location Date Provider Diagnosis [facility] [address] [place] [address] 02/23/2024 Олег Skinner Jr Plan Of Treatment No Information Progress Notes * MANJULAVITO DELACRUZDOB:[birth year] (58 yo M)Acc No.[id number]:02/23/2024 Patient:?VITO EMANUEL :1965???Age:58 Y???Sex:Male Address:[facility] [place], [address] * true * Date:? Generated for Satnami james/Ayo/eTransmitting on:?08/12/2024 08:30 AM EDT
--- OUTSIDE RECORDS SUMMARY | 2024-08-12 08:31 | XMS_ITS ---
Author Organization [facility] Address [address] [place] [address] Care Team Providers Care Parking Assistant Name Role Phone Darci ADAMSON, Asma Primary Care Provider Олег Joiner Jr REASON FOR VISIT pathology Encounters Encounter Location Date Provider Diagnosis [facility] [address] [place] [address] 03/06/2024 Олег Skinner Jr Plan Of Treatment No Information Progress Notes * VITO EMANUELDOB:[birth year] (58 yo M)Acc No.[id number]:03/06/2024 Patient:?VITO EMANUEL :1965???Age:58 Y???Sex:Male Address:[place], [address] * true * Date:? Generated for Satnami james/Ayo/eTransmitting on:?08/12/2024 08:30 AM EDT
--- OUTSIDE RECORDS SUMMARY | 2024-08-12 08:31 | XMS_ITS ---
Author Organization [facility] Address [address] [place] [address] Care Team Providers Care Band Nailer Name Role Phone Darci ADAMSON, Marilou Primary Care Provider Олег Joiner Jr REASON FOR VISIT hx polyps,rectal bleeding Encounters Encounter Location Date Provider Diagnosis [facility] [place] [address] [place] [phone] 02/29/2024 Олег Skinner Jr Colon cancer screening [...] * VITO EMANUELDOB:[birth year] (59 yo M)Acc No.[id number]:02/29/2024 COLON WITH MAC Patient:?VITO EMANUEL Provider:?Олег Skinner MD :1965???Age:58 Y???Sex:Male Darrin e:02/29/2024 Address:[facility] [place] Pcp:Marilou Bejarano MD Subjective: * Chief Complaints: * ???1. Hx polyps,rectal bleed ing. * Medical History:? Objective: * Vitals:? Assessment: * Assessment: 1.?Colon cancer screening - Z12.11 (Primary)???2.?Colon polyps - K63.5???3.?History of colon polyps - Z86.0100??? Plan: * Treatment: * Procedure Codes:?96542 LESIO N REMOVAL COLONOSCOPY, 0529F INTRVL 3+YRS PTS CLNSCP DOCD, 0528F RCMND FLW-UP 10 YRS DOCD, Modifiers: 1P * * The named appointment provid er may or may not be the originator of this progress note, and it is not deemed complete until electronically signed by the appointment provider. Sign off status: Pending * Provider:?Олег Skinner MD Date:?1 Generated for Rosalie ramirez/Ayo/Janinaitting on:?08/12/2024 08:30 AM EDT
[2024-08-12 11:19] LABS: MANUAL DIFF FLAG NO
[2024-08-12 11:21] LABS: Basophils Absolute Auto 0.1 X10*3/uL (0.0-0.2); Eosinophils Absolute Auto 0.2 X10*3/uL (0.0-0.4); Eosinophils Percent Auto 2.3 % (0-4); Hematocrit 38.8 % (42.0-52.0); Hemoglobin 13.4 g/dl (14.0-18.0); Imm Gran Abs Auto 0.04 X10*3/uL (0.00-0.03); Imm Gran Pct Auto 0.4 % (0.0-0.4); Lymphocytes Absolute Auto 2.6 X10*3/uL (1.2-4.9); Lymphocytes Percent Auto 24.8 % (20-40); Mean Corpuscular HGB Conc 34.5 g/dl (31.0-36.0); Mean Corpuscular Hemoglobin 32.4 pg (27.0-33.0); Mean Corpuscular Volume 93.9 fL (80.0-98.0); Mean Platelet Volume 9.8 fL (9.4-12.4); Monocytes Absolute Auto 0.9 X10*3/uL (0.1-1.2); Monocytes Percent Auto 8.6 % (2-11); Neutrophils Absolute Auto 6.5 x10*3/uL (2.0-8.3); Neutrophils Percent Auto 62.9 % (45-73); Platelet Count 270 X10*3/uL (160-400); Red Blood Count 4.13 X10*6/uL (4.60-5.80); White Blood Count 10.3 X10*3/uL (4.8-10.8)
[2024-08-12 11:45] LABS: Alanine Aminotransferase 30 U/L (0-40); Albumin Level 4.4 g/dL (3.5-5.0); Alkaline Phosphatase 38 U/L (39-117); Anion Gap 13 (12-20); Aspartate Amino Transferase 32 U/L (5-37); Bilirubin Total 0.3 mg/dL (0.0-1.0); Blood Urea Nitrogen 17 mg/dL (9-16); Calcium 9.9 mg/dL (8.4-10.2); Carbon Dioxide 25 mmol/L (22-29); Chloride 105 mmol/L (96-108); Cholesterol 181 mg/dL (<200); Estimated Glomerular Filt Rate > 60; Glucose Fasting 97 mg/dL (60-99); HDL Cholesterol 47 mg/dL (>40); LDL Cholesterol Calculated 107 mg/dL (<100); Potassium 3.7 mmol/L (3.3-5.1); Sodium 139 mmol/L (135-145); Total Protein 7.4 g/dL (6.5-8.0); Triglycerides 136 mg/dL (<150)
[2024-08-12 12:01] LABS: Ferritin 122 ng/mL (20-250)
== END 2024-08-12 08:28 | disposition home or self-care (01) ==
LOC: HO.HMGCLDS 08:27
PROVIDERS: PCP Internal Medicine; Visit Provider Internal Medicine
DX: I10 Essential (primary) hypertension (principal); E78.9 Disorder of lipoprotein metabolism, unspecified; F41.1 Generalized anxiety disorder; F10.20 Alcohol dependence, uncomplicated; D64.9 Anemia, unspecified; Z72.0 Tobacco use; R06.2 Wheezing; Z71.6 Tobacco abuse counseling
CPT/HCPCS: 36415; 80053; 80061; 82728; 85025

== ENCOUNTER 2025-02-23 11:01 | Outpatient (REF) | payer OTHER, SELFPAY ==
[2025-02-23 13:20] LABS: MANUAL DIFF FLAG NO
[2025-02-23 13:33] LABS: Hematocrit 40.6 % (42.0-52.0); Hemoglobin 13.5 g/dl (14.0-18.0); Imm Gran Abs Auto 0.05 X10*3/uL (0.00-0.03); Imm Gran Pct Auto 0.6 % (0.0-0.4); Lymphocytes Absolute Auto 1.5 X10*3/uL (1.2-4.9); Mean Corpuscular HGB Conc 33.3 g/dl (31.0-36.0); Mean Corpuscular Hemoglobin 31.1 pg (27.0-33.0); Mean Corpuscular Volume 93.5 fL (80.0-98.0); NRBC Abs Auto 0.000 X10*3/uL (0.0-0.012); NRBC Pct Auto 0.0 /100WBC (0.0-0.2); Platelet Count 258 X10*3/uL (160-400); Red Blood Count 4.34 X10*6/uL (4.60-5.80); White Blood Count 8.0 X10*3/uL (4.8-10.8)
[2025-02-23 14:46] LABS: Alanine Aminotransferase 30 U/L (0-40); Albumin Level 4.9 g/dL (3.5-5.0); Alkaline Phosphatase 49 U/L (39-117); Anion Gap 15 (12-20); Aspartate Amino Transferase 30 U/L (5-37); Blood Urea Nitrogen 12 mg/dL (9-16); Calcium 10.1 mg/dL (8.4-10.2); Carbon Dioxide 27 mmol/L (22-29); Chloride 100 mmol/L (96-108); Estimated Glomerular Filt Rate > 60; Potassium 3.7 mmol/L (3.3-5.1); Sodium 138 mmol/L (135-145); Total Protein 7.9 g/dL (6.5-8.0)
== END 2025-02-23 11:02 | disposition home or self-care (01) ==
LOC: HO.HMGCLDS 11:01
PROVIDERS: PCP Internal Medicine; Visit Provider Internal Medicine
DX: Z00.01 Encounter for general adult medical examination with abnormal findings (principal); I10 Essential (primary) hypertension; E78.9 Disorder of lipoprotein metabolism, unspecified; F10.20 Alcohol dependence, uncomplicated; D64.9 Anemia, unspecified; F17.210 Nicotine dependence, cigarettes, uncomplicated; Z79.899 Other long term (current) drug therapy
CPT/HCPCS: 36415; 80053; 83721; 85025; 96127

== ENCOUNTER 2025-02-23 11:01 | Outpatient (AMB) | payer OTHER, SELFPAY ==
--- OUTSIDE RECORDS SUMMARY | 2024-02-29 05:00 | XMS_ITS ---
Author Organization [facility] Address [address] [place] [address] Care Team Providers Care Street Supervisor Name Role Phone Darci ADAMSON, Marilou Primary Care Provider Олег Joiner Jr REASON FOR VISIT hx polyps,rectal bleeding Encounters Encounter Location Date Provider Diagnosis [facility] Outpatient [address] [place] [phone] 02/29/2024 Олег Skinner Jr Colon cancer screening Z12.11 ; Colon polyps K63.5 and History of colon polyps Z86.0100 Assessments Encounter Date Diagnosis (ICD Code) Assessment Notes Treatment Notes Treatment Clinical Notes Section Notes 02/29/2024 Colon cancer screening (ICD-10 - Z12.11) 02/29/2024 Colon polyps (ICD-10 - K63.5) 02/29/2024 History of colon polyps (ICD-10 - Z86.0100) Plan Of Treatment No Information Progress Notes * VITO EMANUELDOB:[birth year] (59 yo M)Acc No.[id number]:02/29/2024 COLON WITH MAC Patient: VITO CADENA Provider: Ariana Skinner MD :1965 A ge:58 Y S ex:Male Date:02/29/2024 Address:[facility] [place] , [place] Pcp:Marilou Bejarano MD Subjective: * Chief Complaints: * 1 . Hx polyps,rectal bleeding. * Medical History: Objective: * Vitals: Assessment: * Assessment: 1. C olon cancer screening - Z12.11 (Primary) 2 . C olon polyps - K63.5? 3. H istory of colon polyps - Z86.0100 Plan: * Treatment: * Procedure Codes: 4 5385 LESION REMOVAL COLONOSCOPY, 0529F INTRVL 3+YRS PTS CLNSCP DOCD, 0528F RCMND FLW-UP 10 YRS DOCD, Modifiers: 1P * * The named appointment provid er may or may not be the originator of this progress note, and it is not deemed complete until electronically signed by the appointment provider. Sign off status: Pending * Provider: Ariana Skinner MD Date: Generated for Rosalie armirez/Ayo/Janinaitting on: 01:05 PM EDT
--- NOTE | 2025-02-23 11:06 | A.OFFPC_ITS ---
Vital Signs 02/23/25 11:14 Height 5 ft 9 in Weight 180 lb BMI 26.6 BP 110/70 Blood Pressure Location Rt brachial Position Sitting Respiration 16 Pulse 74 Pulse Source Pulse Oximeter Temp 98.4 F Temp Source Oral Pulse Oximetry (%) 94 Oxygen Delivery Method Room Air Intake Visit Reasons: Annual PE [employer] Required: No Allergies No Known Allergies (No Known Allergies*) Allergy (Verified 02/23/25 11:12) Medication List - Last Reconciled 02/23/25 by Marilou Bejarano MD amlodipine 10 mg PO DAILY fenofibrate nanocrystallized 145 mg PO DAILY ferrous sulfate 324 mg PO BID 90 days losartan-hydrochlorothiazide 100-25 mg 1 tab PO DAILY 90 days lovastatin 40 mg PO DAILY 90 days metoprolol succinate ER 100 mg PO DAILY paroxetine HCl ER 25 mg PO DAILY Tobacco use date assessed: 02/23/25 Dental Screening Dental Screen Date: 02/23/25 Did you have a dental visit in the last 12 months?: Yes Did you have a dental problem in the last 6 months where you did not have access to dental care?: No Was dental information given to patient?: Patient has dentist HPI Annual PE HPI Details PE apt The patient is a 59 year old male presenting with acute upper respiratory infection symptoms. Essential Hypertension: - Blood pressure is noted to be well con trolled at the time of the visit. - The patient continues on antihypertens robb therapy. Anxiety: - The patient is on paroxetine 25 mg. Hyperlipidemia: - Managed with lovastatin 40 mg. Tubular Adenoma: - The patient reports a history of tubul ar adenoma found during colonoscopies by Dr. Skinner in [address] Jose in January of last year, indicating a higher risk for colon cancer. - Follow-up colonoscopy is expected in a bout five years, despite prior advice for a ten-year interval. Chronic Obstructive Pulmonary Disease (COPD): - The patient reports wheezing and menti ons a long history of smoking potentially contributing to COPD. - Did not report current shortness of br eath. Acute Upper Respiratory Infection: - Recent symptoms include congestion, ru nny nose, body aches, and sneezing. - Reports a mild improvement in symptoms with no high fever checked recently. - Possible antibiotic will be prescribed due to history of wheezing and smoking. Medical History: - Essential Hypertension - Anxiety - Hyperlipidemia - Tubular Adenoma identified in 2014 and 2021 - Chronic Obstructive Pulmonary Disease (COPD) Social History: - Long-term history of smoking - Currently drinks alcohol; no intention to seek assistance. Health Maintenance - Follow-up blood tests ordered. - Colonoscopy done last year with nikko gs of tubular adenoma; another due in approximately five years. [facility] - [facility] [employer] [facility] for colonoscopy, Dr Mariana Jose. Medications - Amlodipine 10 mg for blood pressure - Losartan hydrochlorothiazide 100-25 mg for blood pressure - Metoprolol 100 mg for blood pressure - Paroxetine 25 mg for anxiety - Lovastatin 40 mg for lipid control Patient Instructions - Undergo the blood tests today. - Begin taking the prescribed antibiotic s. - Check medication needs; refer any bullock ges. f/u 4 M Review of Systems - General: No fever no chills - Neurological: No headaches no dizzin ess - Cardiovascular: No syncope, no chest pain, no palpitations - Gastrointestinal: No nausea vomiting or diarrhea - Endocrine: No polyuria polydipsia no heat intolerance - Genitourinary: No dysuria - Skin: No new complaints Physical Exam General: Cooperative, healthy appearing, comfortable, no acute distress Orientation: Patient oriented x3 Head: Normal to inspection Ears: Within normal limit visually Nose: Congestion, runny nose Face and sinus: Normal facial exam Eyes: Appearance normal, extraocular movement intact pupils reactive Neck: Normal visual inspection and supple Respiratory: Normal respiratory effort and able to speak in complete sentences. , wheezing present on auscultation posteriorly Cardiovascular: S1 and S2 RRR GI: Normal to inspection. Soft to palpation and nontender Skin: turgor normal, no acute findings Neuro: Patient oriented x3, motor sensory intact, balance intact, tandem pass Extremities: Normal to inspection . [facility] Medical History Tobacco use disorder Alcoholism Anxiety, generalized Lipid disorder Hypertension, essential Surgical History Hx of appendectomy H/O colonoscopy Social History Housing: House Patient Tobacco Use Status: Current everyday Tobacco user Tobacco use type: Cigarette Cigarette Packs Per Day: 1 Cigarettes Per Day: 20 Years Smoked: 25 e-Cigarette/Vaping Use: Never Used service: No Current occupational status: employed Cognitive needs: No Hearing needs: No Vision needs: No Questionnaire PHQ-9 Over the last 2 weeks, how often have you been bothered by any of the following problems? 1. Little interest or pleasure in doing things: not at all 2. Feeling down, depressed, or hopeless: not at all 3. Trouble falling or staying asleep, or sleeping too much: not at all 4. Feeling tired or having little energy: not at all 5. Poor appetite or overeating: not at all 6. Feeling bad about yourself - or that you are a failure or have let yourself or your family down: not at all 7. Trouble concentrating on things, such as reading the newspaper or watching television: not at all 8. Moving or speaking so slowly that other people could have noticed. Or the opposite - being so fidgety or restless that you have been moving around a lot more than usual: not at all 9. Thoughts that you would be better off or of hurting yourself in some way: not at all Total score: 0 Depression Screening Interpretation: Negative Depression Screening Done: Yes 27272 - PHQ-9 Billing: Yes Source: Developed by Drs. Myles Evans, Eileen Cespedes, Dayo Bowling and colleagues, with an educational anne-marie from [employer]. Thrive Questionnaire Date Thrive assessed: 05/12/24 I am a: Patient What is your living situation today?: I have a steady place to live Within the past 12 months, did the food you bought not last and you didn't have the money to get more?: Never true Within the past 12 months, did you worry whether your food would run out before you got money to buy more?: Never true Do you have trouble paying for medicines?: No Do you have trouble getting transportation to medical appointments?: No Do you have trouble paying your heating and electricity bill?: No Do you have trouble taking care of your child, family member or friend?: No Do you have trouble with day-to-day activities such as bathing, preparing meals, shopping, managing finances, etc.?: No Are you currently unemployed and looking for a job?: No Are you interested in more education?: No Please select the resources that you would like help with: None Currently or been in a relationship where the following occur: No concerns reported THRIVE Score: 0 AUDIT C Alcohol Use Questionnaire (AUDIT-C) 1. How often do you have a drink containing alcohol?: 4 or more times a week 2. How many drinks containing alcohol do you have on a typical day when you are drinking?: 10 or more 3. How often do you have six or more drinks on one occasion?: Daily or almost daily Total Score: 12 Score Reviewed/Action Taken: Yes (encouraged patient to at least cut down) STEFANIE-7 AMB Questionnaire STEFANIE-7 Date STEFANIE - 7 assessed: 05/12/24 Source: Developed by Drs. Myles Evans, Eileen Cespedes, Dayo Bowling and colleagues, with an educational anne-marie from [employer]. Physical exam (Primary Care) Vital Signs: Last Vital Signs Temp 98.4 F 02/23/25 11:14 Pulse 74 02/23/25 11:14 Resp 16 02/23/25 11:14 BP 110/70 02/23/25 11:14 Pulse Ox 94 02/23/25 11:14 Oxygen Delivery Method Room Air 02/23/25 11:14 BMI result Body Mass Index 26.6 Tobacco/Smoking Status: Tobacco use Status Tobacco use date assessed 02/23/25 02/23/25 11:17 Patient Tobacco Use Status Current everyday Tobacco 02/23/25 11:07 Tobacco use type Cigarette 02/23/25 11:07 e-Cigarette/Vaping Use Never Used 02/23/25 11:07 Are you ready to quit: No Tobacco cessation counseling provided: Yes Relapse Prevention: discussed the importance of a supportive environment CPT code: Less than 3 minutes PHQ-9: PHQ-9 Score PHQ-9: Total score 0 02/23/25 11:35 Depression Screening Interpretation: Negative Thrive Assessment: Date of Thrive Assessment Date Thrive assessed 05/12/24 02/23/25 11:07 Currently or been in a relationship where the following occur: No concerns reported Coding Level of Care Code Est Pt Level 4 (04636) Est Pt Prev Care 40-64y(28386) Diagnoses Encounter for general adult medical examination with abnormal findings Z00.01 Hypertension, essential I10 Lipid disorder E78.9 Alcoholism F10.20 Low hemoglobin D64.9 Tobacco abuse Z72.0 Anxiety, generalized F41.1 Additional Codes PHQ-9 - 32563 - PHQ-9 Billing: Yes ([id number]) Assessment & Plan Assessment & Plan (1) Encounter for general adult medical examination with abnormal findings: Code(s): Z00.01 - Encounter for general adult medical examination with abnormal findings Category: Medical (2) Hypertension, essential: Code(s): I10 - Essential (primary) hypertension Category: Medical (3) Lipid disorder: Code(s): E78.9 - Disorder of lipoprotein metabolism, unspecified Category: Medical (4) Alcoholism: Code(s): F10.20 - Alcohol dependence, uncomplicated Category: Medical (5) Low hemoglobin: Code(s): D64.9 - Anemia, unspecified Category: Medical (6) Tobacco abuse: Code(s): Z72.0 - Tobacco use Category: Medical (7) Anxiety, generalized: Code(s): F41.1 - Generalized anxiety disorder Category: Medical Plan Essential Hypertension: - Blood pressure is noted to be well controlled at the time of the visit. - The patient continues on antihypertensive therapy. Anxiety: - The patient is on paroxetine 25 mg. Hyperlipidemia: - Managed with lovastatin 40 mg. Tubular Adenoma: - The patient reports a history of tubular adenoma found during colonoscopies by Dr. Skinner in [address] Jose in January of last year, indicating a higher risk for colon cancer. - Follow-up colonoscopy is expected in about five years, despite prior advice for a ten-year interval. Chronic Obstructive Pulmonary Disease (COPD): - The patient reports wheezing and mentions a long history of smoking potentially contributing to COPD. - Did not report current shortness of breath. Acute Upper Respiratory Infection: - Recent symptoms include congestion, runny nose, body aches, and sneezing. - Reports a mild improvement in symptoms with no high fever checked recently. - Possible antibiotic will be prescribed due to history of wheezing and smoking. Anxiety is stzble with Med Medical History: - Essential Hypertension - Anxiety - Hyperlipidemia - Tubular Adenoma identified in 2014 and 2021 - Chronic Obstructive Pulmonary Disease (COPD) Social History: - Long-term history of smoking - Currently drinks alcohol; no intention to seek assistance. Health Maintenance - Follow-up blood tests ordered. - Colonoscopy done last year with findings of tubular adenoma; another due in approximately five years. [facility] [employer] [facility] for colonoscopy, Dr. Jose. Medications - Amlodipine 10 mg for blood pressure - Losartan hydrochlorothiazide 100-25 mg for blood pressure - Metoprolol 100 mg for blood pressure - Paroxetine 25 mg for anxiety - Lovastatin 40 mg for lipid control Patient Instructions - Undergo the blood tests today. - Begin taking the prescribed antibiotics. - Check medication needs; refer any changes. f/u 4 M . Orders: Orders Comprehensive Met. Panel 02/23/25 D64.9 - Anemia, unspecified, E78.9 - Disorder of lipoprotein metabolism, unspecified, F10.20 - Alcohol dependence, uncomplicated, I10 - Essential (primary) hypertension, Z00.01 - Encounter for general adult medical examination with abnormal findings, Z72.0 - Tobacco use LDL Cholesterol Direct 02/23/25 D64.9 - Anemia, unspecified, E78.9 - Disorder of lipoprotein metabolism, unspecified, F10.20 - Alcohol dependence, uncomplicated, I10 - Essential (primary) hypertension, Z00.01 - Encounter for general adult medical examination with abnormal findings, Z72.0 - Tobacco use Complete Blood Count Auto Diff 02/23/25 D64.9 - Anemia, unspecified, E78.9 - Disorder of lipoprotein metabolism, unspecified, F10.20 - Alcohol dependence, uncomplicated, I10 - Essential (primary) hypertension, Z00.01 - Encounter for general adult medical examination with abnormal findings, Z72.0 - Tobacco use Medications: Refilled amlodipine 10 mg PO DAILY 90 tabs 0RF fenofibrate nanocrystallized 145 mg PO DAILY 90 tabs 0RF lovastatin 40 mg PO DAILY 90 tabs 1RF 90 days E78.9 - Disorder of lipoprotein metabolism, unspecified metoprolol succinate ER 100 mg PO DAILY 90 tabs 0RF paroxetine HCl ER 25 mg PO DAILY 90 tabs 0RF losartan-hydrochlorothiazide 100-25 mg 1 tab PO DAILY 90 tabs 1RF 90 days I10 - Essential (primary) hypertension
[2025-02-23 11:14] VITALS: BP 110/70; PULSE 74; RESP 16; TEMP 36.9; O2SAT 94; BMI 26.6
--- OUTSIDE RECORDS SUMMARY | 2025-02-23 13:05 | XMS_ITS | Patient Health Record ---
Author Organization [facility] Address [address] [place] [address] Care Team Providers Care Anesthesiologist Assistant Name Role Phone Darci ADAMSON, Asma Primary Care Provider Олег Joiner Jr Unavailable [phone] Allergies No Known Allergies Results Component Value Reference Range Notes Pathology Reviewed date:03/06/2024 09:08:00 AM Interpretation: Performing Lab:[facility], [address] [place] [id number] Notes/Report: Reason For Referral No Information Medications Medication SIG (Take, Route, Frequency, Duration) Notes Start Date End Date Status Fenofibrate Active MiraLax (colon prep) 17 GM/SCOOP mixed with Gatorade or Crystal Light Orally begin at 5:00 p.m. the day before the procedure; Duration: 1 day 01/20/2024 Active PARoxetine HCl ER Ac tive Losartan Potassium-HCTZ 100-25 MG TAKE 1 TABLET BY MOUTH EVERY DAY FOR 90 DAYS Oral; Duration: 90 Active Metoprolol Succinate ER Active Lovastatin [...] Problem Status W/U Status Risk Notes Problem Rectal bleeding ([id number]) Rectal bleeding (K62.5) Active confirmed Problem History of polyp of colon (situation) ([id number]) Personal history of colonic polyps (Z86.010) Active confirmed Encounters Encounter Location Date Provider Diagnosis [facility] [address] [address] [place], [place] [id number] 02/29/2024 Олег Skinner Jr Colon cancer screening Z12.11 ; Colon polyps K63.5 and History of colon polyps Z86.0100 [facility] [address] [place] [address] 03/06/2024 Олег Skinner Jr Assessments Encounter Date [...] Insured Coverage Start Date Coverage End Date [employer] [address] [place] [id number] [phone] [id number] VITO EMANUEL Self - patient is the insured Medical (General) History Medical History History ICD Code Hypertension Hyperlipidemia Anxiety Colonoscopy 08/15, tubular adenoma, five- year followup Surgical History Surgery Date(Month/Year) appendectomy 1998
== END 2025-02-23 11:42 | disposition home or self-care (01) ==
LOC: HO.HMCC 11:02
PROVIDERS: PCP Internal Medicine; Visit Provider Internal Medicine
DX: Z00.01 Encounter for general adult medical examination with abnormal findings (principal); I10 Essential (primary) hypertension; F10.20 Alcohol dependence, uncomplicated; E78.9 Disorder of lipoprotein metabolism, unspecified; D64.9 Anemia, unspecified; Z72.0 Tobacco use; F41.1 Generalized anxiety disorder